=== PATIENT | female | born 1970 | race Caucasian/White ===

== ENCOUNTER → 2018-09-19 09:18 | Outpatient (POV) | payer SELFPAY | PROVIDERS: Visit Provider Dermatology | DX: Z00.00 Encounter for general adult medical examination without abnormal findings (principal) ==

== ENCOUNTER → 2018-12-13 08:08 | Outpatient (CLI) | payer BC, SELFPAY ==
[2018-12-13 14:00] LABS: Basophils % 0.6 % (0.1-2.0); Eosinophils # 0.2 K/mm3 (0.0-0.4); Eosinophils % 2.9 % (0.1-12.0); Hematocrit 36.4 % (37.0-47.0); Hemoglobin 11.5 g/dL (12.2-16.2); Lymphocytes # 2.1 K/mm3 (0.7-4.5); Lymphocytes % 31.4 % (10-50); Mean Corpuscular HGB Conc 31.5 g/dL (31.8-35.4); Mean Corpuscular Hemoglobin 29.3 pg (27.0-31.2); Mean Corpuscular Volume 93.1 fl (81-99); Mean Platelet Volume 8.3 fl (7.4-10.4); Monocytes # 0.3 K/mm3 (0.1-1.0); Monocytes % 4.4 % (1.7-9.3); Neutrophils % 60.7 % (37.0-80.0); Platelet Count 489 K/mm3 (142-424); Red Blood Count 3.91 M/mm3 (4.20-5.40); Red Cell Distribution Width 13.3 % (11.5-17.5); White Blood Count 6.5 K/mm3 (4.8-10.8)
[2018-12-13 14:25] LABS: Alanine Aminotransferase 25 U/L (12-78); Albumin Level 3.3 gm/dL (3.4-5.0); Alkaline Phosphatase 98 U/L (46-116); Anion Gap 14.1 mEq/L (5-15); Aspartate Amino Transferase 17 U/L (15-37); Bilirubin,Total 0.3 mg/dL (0.2-1.0); Blood Urea Nitrogen 12 mg/dL (7-18); Calcium 8.9 mg/dL (8.5-10.1); Carbon Dioxide 29 mmol/L (21.0-32.0); Chloride 100 mmol/L (98-107); Chol/HDL Ratio 5.2 (1-3.5); Cholesterol 178 mg/dL (140-200); Creatinine,Serum 0.67 mg/dL (0.55-1.02); Estimated Glomerular Filt Rate 94 ml/min (>60); GFR (African American) 114 ML/MIN (>60); Globulin 3.4 gm/dl (1.3-3.2); Glucose 108 mg/dL (74-106); HDL Cholesterol 34 mg/dL (29-89); LDL Cholesterol 122 mg/dL (0-130); Potassium 4.1 mmoL/L (3.5-5.1); Sodium 139 mmol/L (136-145); Total Protein,Serum 6.7 gm/dL (6.4-8.2); Triglycerides 111 mg/dL (30-200); VLDL Cholesterol 22 mg/dL (0-40)
[2018-12-13 14:44] LABS: Hemoglobin A1C 6.3 % (0.0-7.0)
== END ==
PROVIDERS: PCP Nurse Practitioner Family; Visit Provider Nurse Practitioner Family
DX: I10 Essential (primary) hypertension (principal); E78.5 Hyperlipidemia, unspecified
CPT/HCPCS: 36415; 80053; 80061; 83036; 85025

== ENCOUNTER → 2018-12-26 08:50 | Outpatient (POV) | payer BC, SELFPAY | PROVIDERS: Visit Provider Dermatology | DX: Z00.00 Encounter for general adult medical examination without abnormal findings (principal) ==

== ENCOUNTER → 2019-01-04 09:42 | Outpatient (CLI) | payer BC, SELFPAY ==
[2019-01-04 13:26] LABS: Alanine Aminotransferase 46 U/L (12-78); Albumin Level 3.8 gm/dL (3.4-5.0); Albumin/Globulin Ratio 1.1 (1.1-1.8); Alkaline Phosphatase 90 U/L (46-116); Anion Gap 14.2 mEq/L (5-15); Aspartate Amino Transferase 19 U/L (15-37); Bilirubin,Total 0.4 mg/dL (0.2-1.0); Blood Urea Nitrogen 12 mg/dL (7-18); Calcium 9.6 mg/dL (8.5-10.1); Carbon Dioxide 27 mmol/L (21.0-32.0); Chloride 102 mmol/L (98-107); Creatinine,Serum 0.74 mg/dL (0.55-1.02); Estimated Glomerular Filt Rate 84 ml/min (>60); Ferritin 25 ng/mL (8-388); GFR (African American) 102 ML/MIN (>60); Globulin 3.4 gm/dl (1.3-3.2); Glucose 98 mg/dL (74-106); Potassium 4.2 mmoL/L (3.5-5.1); Sodium 139 mmol/L (136-145); Total Protein,Serum 7.2 gm/dL (6.4-8.2)
[2019-01-04 14:22] LABS: Basophils % 0.6 % (0.1-2.0); Eosinophils % 0.6 % (0.1-12.0); Hematocrit 35.4 % (37.0-47.0); Hemoglobin 11.1 g/dL (12.2-16.2); Lymphocytes % 30.4 % (10-50); Mean Corpuscular HGB Conc 31.5 g/dL (31.8-35.4); Mean Corpuscular Hemoglobin 27.5 pg (27.0-31.2); Mean Corpuscular Volume 87.3 fl (81-99); Mean Platelet Volume 8.5 fl (7.4-10.4); Monocytes # 0.4 K/mm3 (0.1-1.0); Monocytes % 5.5 % (1.7-9.3); Neutrophils # 4.2 K/mm3 (1.8-7.8); Neutrophils % 62.9 % (37.0-80.0); Platelet Count 430 K/mm3 (142-424); Red Blood Count 4.05 M/mm3 (4.20-5.40); Red Cell Distribution Width 13.2 % (11.5-17.5); White Blood Count 6.6 K/mm3 (4.8-10.8)
[2019-01-05 08:22] LABS: Iron 78 ug/dL (27-159); UIBC 330 ug/dL (131-425)
[2019-01-05 10:32] LABS: Iron Saturation 19 % (15-55)
== END ==
PROVIDERS: PCP Nurse Practitioner Family; Visit Provider Internal Medicine Medical Oncology
DX: C43.9 Malignant melanoma of skin, unspecified (principal)
CPT/HCPCS: 36415; 80053; 82728; 83540; 83550; 85025

== ENCOUNTER → 2019-01-08 13:46 | Outpatient (CLI) | payer BC, SELFPAY ==
--- NOTE | 2019-01-08 13:52 | MR_ITS ---
MR head/brain wo/w con HISTORY: ITS.REASON: MELANOMA ORDERING PHYSICIAN: Tori Smith MD PATIENT AGE: 48 years Comparison: None TECHNIQUE: Standard multiplanar multiecho sequences are performed with contrast. FINDINGS: Diffusion images show no areas of restricted diffusion. There is no mass, acute hemorrhage or extra-axial fluid collection. Ventricles, sulci, cortical areas and brain stem structures are normal. There are no areas of abnormal signal or enhancement. Visualized portions of the optic pathways appear to be normal. Visualized vessels and area of the foramen magnum is normal. There is a smoothly marginated 1.7 cm focus of increased T2 signal in the floor of the right maxillary sinus. IMPRESSION: Right maxillary sinus retention cysts. Otherwise normal exam.
== END ==
PROVIDERS: PCP Internal Medicine Medical Oncology; Visit Provider Internal Medicine Medical Oncology
DX: C43.9 Malignant melanoma of skin, unspecified (principal)
CPT/HCPCS: 70553; A9576

== ENCOUNTER 2019-01-25 14:46 | Outpatient (CLI) | payer BC, SELFPAY ==
[2019-01-25 15:07] VITALS: BP 159/69; PULSE 87; RESP 18; TEMP 36.6; O2SAT 98
[2019-01-25 15:37] VITALS: BP 149/67; PULSE 88; RESP 18; O2SAT 97
[2019-01-25 15:55] VITALS: BP 151/62; PULSE 84; RESP 18; O2SAT 97
== END 2019-01-25 15:55 | disposition home or self-care (01) ==
LOC: INF 14:46
PROVIDERS: Visit Provider Internal Medicine Medical Oncology
DX: C43.9 Malignant melanoma of skin, unspecified (principal)
CPT/HCPCS: 96413; J9271

== ENCOUNTER → 2019-02-12 07:20 | Outpatient (CLI) | payer BC, SELFPAY ==
[2019-02-12 14:03] LABS: Basophils % 0.8 % (0.1-2.0); Eosinophils # 0.1 K/mm3 (0.0-0.4); Eosinophils % 1.7 % (0.1-12.0); Hematocrit 35.3 % (37.0-47.0); Hemoglobin 11.2 g/dL (12.2-16.2); Lymphocytes # 2.1 K/mm3 (0.7-4.5); Lymphocytes % 37.8 % (10-50); Mean Corpuscular HGB Conc 31.6 g/dL (31.8-35.4); Mean Corpuscular Hemoglobin 28.6 pg (27.0-31.2); Mean Corpuscular Volume 90.6 fl (81-99); Mean Platelet Volume 8.4 fl (7.4-10.4); Monocytes # 0.2 K/mm3 (0.1-1.0); Monocytes % 3.7 % (1.7-9.3); Neutrophils # 3.2 K/mm3 (1.8-7.8); Neutrophils % 55.9 % (37.0-80.0); Platelet Count 463 K/mm3 (142-424); Red Cell Distribution Width 13.6 % (11.5-17.5); White Blood Count 5.7 K/mm3 (4.8-10.8)
[2019-02-12 14:20] LABS: Alanine Aminotransferase 25 U/L (12-78); Albumin Level 3.9 gm/dL (3.4-5.0); Albumin/Globulin Ratio 1.2 (1.1-1.8); Alkaline Phosphatase 82 U/L (46-116); Anion Gap 11.7 mEq/L (5-15); Aspartate Amino Transferase 10 U/L (15-37); Bilirubin,Total 0.2 mg/dL (0.2-1.0); Blood Urea Nitrogen 17 mg/dL (7-18); Calcium 9.3 mg/dL (8.5-10.1); Carbon Dioxide 29 mmol/L (21.0-32.0); Chloride 104 mmol/L (98-107); Creatinine,Serum 0.66 mg/dL (0.55-1.02); Estimated Glomerular Filt Rate 96 ml/min (>60); GFR (African American) 116 ML/MIN (>60); Globulin 3.3 gm/dl (1.3-3.2); Glucose 119 mg/dL (74-106); Potassium 3.7 mmoL/L (3.5-5.1); Sodium 141 mmol/L (136-145); Thyroid Stimulating Hormone 1.61 uIU/ml (0.358-3.740); Total Protein,Serum 7.2 gm/dL (6.4-8.2)
== END ==
PROVIDERS: PCP Nurse Practitioner Family; Visit Provider Internal Medicine Medical Oncology
DX: C43.9 Malignant melanoma of skin, unspecified (principal)
CPT/HCPCS: 36415; 80053; 84443; 85025

== ENCOUNTER 2019-02-15 15:09 | Outpatient (CLI) | payer BC, SELFPAY ==
[2019-02-15 15:45] VITALS: BP 112/66; PULSE 71; RESP 18; TEMP 36.6; O2SAT 99
[2019-02-15 16:15] VITALS: BP 118/62; PULSE 76; RESP 18; O2SAT 98
[2019-02-15 16:30] VITALS: BP 120/69; PULSE 74; RESP 18; O2SAT 99
== END 2019-02-15 16:30 | disposition home or self-care (01) ==
LOC: INF 15:09
PROVIDERS: Visit Provider Internal Medicine Medical Oncology
DX: C43.9 Malignant melanoma of skin, unspecified (principal)
CPT/HCPCS: 96413; J9271

== ENCOUNTER → 2019-03-05 07:14 | Outpatient (CLI) | payer BC, SELFPAY ==
[2019-03-05 13:36] LABS: Basophils # 0.1 K/mm3 (0-0.2); Basophils % 0.7 % (0.1-2.0); Eosinophils # 0.2 K/mm3 (0.0-0.4); Eosinophils % 2.6 % (0.1-12.0); Hematocrit 34.9 % (37.0-47.0); Hemoglobin 11.1 g/dL (12.2-16.2); Lymphocytes # 2.3 K/mm3 (0.7-4.5); Lymphocytes % 32.4 % (10-50); Mean Corpuscular HGB Conc 31.9 g/dL (31.8-35.4); Mean Corpuscular Hemoglobin 28.3 pg (27.0-31.2); Mean Corpuscular Volume 88.7 fl (81-99); Mean Platelet Volume 8.5 fl (7.4-10.4); Monocytes # 0.3 K/mm3 (0.1-1.0); Monocytes % 4.6 % (1.7-9.3); Neutrophils # 4.3 K/mm3 (1.8-7.8); Neutrophils % 59.7 % (37.0-80.0); Platelet Count 422 K/mm3 (142-424); Red Blood Count 3.94 M/mm3 (4.20-5.40); White Blood Count 7.2 K/mm3 (4.8-10.8)
[2019-03-05 14:46] LABS: Alanine Aminotransferase 22 U/L (12-78); Albumin Level 3.5 gm/dL (3.4-5.0); Alkaline Phosphatase 76 U/L (46-116); Aspartate Amino Transferase 13 U/L (15-37); Bilirubin,Total 0.2 mg/dL (0.2-1.0); Blood Urea Nitrogen 13 mg/dL (7-18); Calcium 9.1 mg/dL (8.5-10.1); Carbon Dioxide 28 mmol/L (21.0-32.0); Chloride 102 mmol/L (98-107); Estimated Glomerular Filt Rate 107 ml/min (>60); GFR (African American) 130 ML/MIN (>60); Globulin 3.4 gm/dl (1.3-3.2); Glucose 112 mg/dL (74-106); Sodium 138 mmol/L (136-145); Thyroid Stimulating Hormone 2.11 uIU/ml (0.358-3.740); Total Protein,Serum 6.9 gm/dL (6.4-8.2)
== END ==
PROVIDERS: Visit Provider Internal Medicine Medical Oncology
DX: C43.9 Malignant melanoma of skin, unspecified (principal)
CPT/HCPCS: 36415; 80053; 82533; 84443; 85025

== ENCOUNTER 2019-03-08 14:40 | Outpatient (CLI) | payer BC, SELFPAY ==
[2019-03-08 15:20] VITALS: BP 112/55; PULSE 75; RESP 18; TEMP 36.7; O2SAT 98
[2019-03-08 15:30] VITALS: BP 102/60; PULSE 77; RESP 18; TEMP 36.8; O2SAT 97
[2019-03-08 15:45] VITALS: BP 113/57; PULSE 76; RESP 18; TEMP 36.7
[2019-03-08 16:05] VITALS: BP 117/55; PULSE 76; RESP 18; TEMP 36.8; O2SAT 96
== END 2019-03-08 16:05 | disposition home or self-care (01) ==
LOC: INF 14:48
PROVIDERS: Visit Provider Internal Medicine Medical Oncology
DX: C43.9 Malignant melanoma of skin, unspecified (principal)
CPT/HCPCS: 96413; J9271

== ENCOUNTER → 2019-03-26 07:40 | Outpatient (CLI) | payer BC, SELFPAY ==
[2019-03-26 14:10] LABS: Basophils # 0.1 K/mm3 (0-0.2); Basophils % 0.6 % (0.1-2.0); Eosinophils # 0.2 K/mm3 (0.0-0.4); Eosinophils % 2.9 % (0.1-12.0); Hematocrit 37.7 % (37.0-47.0); Hemoglobin 11.2 g/dL (12.2-16.2); Lymphocytes # 2.5 K/mm3 (0.7-4.5); Lymphocytes % 31.6 % (10-50); Mean Corpuscular HGB Conc 29.7 g/dL (31.8-35.4); Mean Corpuscular Hemoglobin 27.1 pg (27.0-31.2); Mean Corpuscular Volume 91.4 fl (81-99); Mean Platelet Volume 8.7 fl (7.4-10.4); Monocytes # 0.4 K/mm3 (0.1-1.0); Monocytes % 4.4 % (1.7-9.3); Neutrophils # 4.8 K/mm3 (1.8-7.8); Neutrophils % 60.5 % (37.0-80.0); Platelet Count 517 K/mm3 (142-424); Red Blood Count 4.12 M/mm3 (4.20-5.40); White Blood Count 7.9 K/mm3 (4.8-10.8)
[2019-03-26 19:09] LABS: Alanine Aminotransferase 15 U/L (12-78); Albumin Level 3.4 gm/dL (3.4-5.0); Albumin/Globulin Ratio 1.1 (1.1-1.8); Alkaline Phosphatase 75 U/L (46-116); Anion Gap 9.8 mEq/L (5-15); Aspartate Amino Transferase 8 U/L (15-37); Bilirubin,Total 0.2 mg/dL (0.2-1.0); Blood Urea Nitrogen 14 mg/dL (7-18); Calcium 8.2 mg/dL (8.5-10.1); Carbon Dioxide 30 mmol/L (21.0-32.0); Chloride 104 mmol/L (98-107); Creatinine,Serum 0.59 mg/dL (0.55-1.02); Estimated Glomerular Filt Rate 109 ml/min (>60); GFR (African American) 132 ML/MIN (>60); Globulin 3.2 gm/dl (1.3-3.2); Glucose 106 mg/dL (74-106); Potassium 3.8 mmoL/L (3.5-5.1); Sodium 140 mmol/L (136-145); Thyroid Stimulating Hormone 2.16 uIU/ml (0.358-3.740); Total Protein,Serum 6.6 gm/dL (6.4-8.2)
== END ==
PROVIDERS: PCP Nurse Practitioner Family; Visit Provider Internal Medicine Medical Oncology
DX: C43.9 Malignant melanoma of skin, unspecified (principal)
CPT/HCPCS: 36415; 80053; 84443; 85025

== ENCOUNTER 2019-03-29 14:06 | Outpatient (CLI) | payer BC, SELFPAY ==
[2019-03-29 14:50] VITALS: BP 119/66; PULSE 63; RESP 18; TEMP 37.3
[2019-03-29 15:05] VITALS: BP 109/64; PULSE 66; RESP 18; TEMP 36.9
[2019-03-29 15:20] VITALS: BP 107/60; PULSE 65; RESP 18; TEMP 37
[2019-03-29 15:40] VITALS: BP 102/64; PULSE 68; RESP 18; TEMP 37
== END 2019-03-29 15:40 | disposition home or self-care (01) ==
LOC: INF 14:06
PROVIDERS: Visit Provider Internal Medicine Medical Oncology
DX: C43.9 Malignant melanoma of skin, unspecified (principal)
CPT/HCPCS: 96413; J9271

== ENCOUNTER → 2019-04-16 07:19 | Outpatient (CLI) | payer BC, SELFPAY ==
[2019-04-16 14:28] LABS: Basophils # 0.1 K/mm3 (0-0.2); Basophils % 0.9 % (0.1-2.0); Eosinophils # 0.2 K/mm3 (0.0-0.4); Eosinophils % 2.4 % (0.1-12.0); Hematocrit 33.7 % (37.0-47.0); Hemoglobin 10.8 g/dL (12.2-16.2); Lymphocytes # 2.3 K/mm3 (0.7-4.5); Mean Corpuscular HGB Conc 32.1 g/dL (31.8-35.4); Mean Corpuscular Hemoglobin 28.8 pg (27.0-31.2); Mean Corpuscular Volume 89.6 fl (81-99); Mean Platelet Volume 8.4 fl (7.4-10.4); Monocytes # 0.4 K/mm3 (0.1-1.0); Monocytes % 5.5 % (1.7-9.3); Neutrophils # 3.7 K/mm3 (1.8-7.8); Neutrophils % 56.2 % (37.0-80.0); Platelet Count 411 K/mm3 (142-424); Red Blood Count 3.76 M/mm3 (4.20-5.40); Red Cell Distribution Width 14.5 % (11.5-17.5); White Blood Count 6.6 K/mm3 (4.8-10.8)
[2019-04-16 14:35] LABS: Alanine Aminotransferase 20 U/L (12-78); Albumin Level 3.7 gm/dL (3.4-5.0); Albumin/Globulin Ratio 1.1 (1.1-1.8); Alkaline Phosphatase 76 U/L (46-116); Anion Gap 10.8 mEq/L (5-15); Aspartate Amino Transferase 9 U/L (15-37); Bilirubin,Total 0.2 mg/dL (0.2-1.0); Blood Urea Nitrogen 13 mg/dL (7-18); Calcium 9.1 mg/dL (8.5-10.1); Carbon Dioxide 29 mmol/L (21.0-32.0); Chloride 103 mmol/L (98-107); Estimated Glomerular Filt Rate 107 ml/min (>60); GFR (African American) 130 ML/MIN (>60); Globulin 3.3 gm/dl (1.3-3.2); Glucose 114 mg/dL (74-106); Potassium 3.8 mmoL/L (3.5-5.1); Sodium 139 mmol/L (136-145); Thyroid Stimulating Hormone 1.99 uIU/ml (0.358-3.740)
[2019-04-18 07:22] LABS: Adrenocorticotropic Hormone 21.9 pg/mL (7.2-63.3)
== END ==
PROVIDERS: PCP Nurse Practitioner Family; Visit Provider Internal Medicine Medical Oncology
DX: C43.9 Malignant melanoma of skin, unspecified (principal)
CPT/HCPCS: 36415; 80053; 82024; 82533; 84443; 85025

== ENCOUNTER 2019-04-20 15:13 | Outpatient (CLI) | payer BC, SELFPAY ==
[2019-04-20 15:14] VITALS: BP 128/86; PULSE 73; RESP 18; TEMP 36.9; O2SAT 98
[2019-04-20 15:44] VITALS: BP 120/86; PULSE 78; RESP 18; O2SAT 98
[2019-04-20 15:57] VITALS: BP 117/75; PULSE 72; RESP 18; O2SAT 97
== END 2019-04-20 15:57 | disposition home or self-care (01) ==
LOC: INF 15:13
PROVIDERS: Visit Provider Internal Medicine Medical Oncology
DX: Z51.11 Encounter for antineoplastic chemotherapy (principal); C43.9 Malignant melanoma of skin, unspecified
CPT/HCPCS: 96413; J9271

== ENCOUNTER → 2019-05-07 07:02 | Outpatient (CLI) | payer BC, SELFPAY ==
[2019-05-07 14:09] LABS: Basophils # 0.1 K/mm3 (0-0.2); Basophils % 0.9 % (0.1-2.0); Eosinophils # 0.3 K/mm3 (0.0-0.4); Eosinophils % 3.3 % (0.1-12.0); Lymphocytes # 2.1 K/mm3 (0.7-4.5); Lymphocytes % 28.2 % (10-50); Mean Corpuscular HGB Conc 31.6 g/dL (31.8-35.4); Mean Corpuscular Hemoglobin 28.6 pg (27.0-31.2); Mean Corpuscular Volume 90.6 fl (81-99); Mean Platelet Volume 8.9 fl (7.4-10.4); Monocytes # 0.3 K/mm3 (0.1-1.0); Monocytes % 3.7 % (1.7-9.3); Neutrophils # 4.8 K/mm3 (1.8-7.8); Platelet Count 453 K/mm3 (142-424); Red Blood Count 3.86 M/mm3 (4.20-5.40); Red Cell Distribution Width 15.2 % (11.5-17.5); White Blood Count 7.6 K/mm3 (4.8-10.8)
[2019-05-07 14:48] LABS: Alanine Aminotransferase 23 U/L (12-78); Albumin Level 3.7 gm/dL (3.4-5.0); Albumin/Globulin Ratio 1.1 (1.1-1.8); Alkaline Phosphatase 70 U/L (46-116); Anion Gap 13.1 mEq/L (5-15); Aspartate Amino Transferase 17 U/L (15-37); Bilirubin,Total 0.3 mg/dL (0.2-1.0); Blood Urea Nitrogen 13 mg/dL (7-18); Carbon Dioxide 27 mmol/L (21.0-32.0); Chloride 102 mmol/L (98-107); Creatinine,Serum 0.54 mg/dL (0.55-1.02); Estimated Glomerular Filt Rate 121 ml/min (>60); GFR (African American) 146 ML/MIN (>60); Globulin 3.3 gm/dl (1.3-3.2); Glucose 108 mg/dL (74-106); Potassium 4.1 mmoL/L (3.5-5.1); Sodium 138 mmol/L (136-145); Thyroid Stimulating Hormone 1.95 uIU/ml (0.358-3.740)
[2019-05-09 10:20] LABS: Adrenocorticotropic Hormone 30.2 pg/mL (7.2-63.3)
== END ==
PROVIDERS: PCP Nurse Practitioner Family; Visit Provider Internal Medicine Medical Oncology
DX: C43.9 Malignant melanoma of skin, unspecified (principal)
CPT/HCPCS: 36415; 80053; 82024; 82533; 84443; 85025

== ENCOUNTER 2019-05-10 14:38 | Outpatient (CLI) | payer BC, SELFPAY ==
[2019-05-10 15:05] VITALS: BP 138/64; PULSE 78; RESP 18; TEMP 36.6; O2SAT 99
[2019-05-10 15:35] VITALS: BP 124/66; PULSE 77; RESP 18; O2SAT 98
[2019-05-10 15:48] VITALS: BP 120/57; PULSE 73; RESP 18; O2SAT 99
== END 2019-05-10 15:48 | disposition home or self-care (01) ==
LOC: INF 14:38
PROVIDERS: Visit Provider Internal Medicine Medical Oncology
DX: Z51.11 Encounter for antineoplastic chemotherapy (principal); C43.9 Malignant melanoma of skin, unspecified
CPT/HCPCS: 96413; J9271

== ENCOUNTER → 2019-05-24 15:57 | Outpatient (CLI) | payer BC, SELFPAY ==
--- NOTE | 2019-05-24 16:01 | MM_ITS ---
PROCEDURE: MM DIG SCREENING MAMM BI W/CAD CLINICAL INDICATION: SCREENING There is no personal or family history of breast cancer. Patient is undergoing treatment for skin cancer at this time with previous resection of a lymph node right axillary region. COMPARISON: None, this is a baseline examination TECHNIQUE: Standard CC and MLO images were obtained. R2 CAD reviewed. FINDINGS: Scattered diffuse fibroglandular densities are seen throughout both breast and the findings of bilateral and symmetrical. There are surgical clips right axilla. There is benign-appearing calcification right breast. There is no suspicious lesion and no suspicious microcalcifications. IMPRESSION: Fibrofatty parenchyma with no suspicious lesions seen BI-RAD Category: 2 Benign Finding(s) FOLLOW-UP: 1YR 1 Year Follow-up (A letter has been sent to the patient regarding results of the study.) Dictated by: Dr. Dung Hernandez MD 05/25/2019 14:[address] Dung Hernandez MD in [place] 05/25/2019 14:15
== END ==
PROVIDERS: PCP Nurse Practitioner Family; Visit Provider Nurse Practitioner Family
DX: Z12.31 Encounter for screening mammogram for malignant neoplasm of breast (principal)
CPT/HCPCS: 77067

== ENCOUNTER → 2019-05-28 07:54 | Outpatient (CLI) | payer BC, SELFPAY ==
[2019-05-28 14:32] LABS: Alanine Aminotransferase 21 U/L (12-78); Albumin Level 3.6 gm/dL (3.4-5.0); Albumin/Globulin Ratio 1.1 (1.1-1.8); Alkaline Phosphatase 78 U/L (46-116); Anion Gap 12.8 mEq/L (5-15); Aspartate Amino Transferase 10 U/L (15-37); Bilirubin,Total 0.3 mg/dL (0.2-1.0); Blood Urea Nitrogen 14 mg/dL (7-18); Calcium 9.2 mg/dL (8.5-10.1); Carbon Dioxide 29 mmol/L (21.0-32.0); Chloride 103 mmol/L (98-107); Creatinine,Serum 0.66 mg/dL (0.55-1.02); Estimated Glomerular Filt Rate 96 ml/min (>60); GFR (African American) 116 ML/MIN (>60); Globulin 3.3 gm/dl (1.3-3.2); Glucose 107 mg/dL (74-106); Potassium 3.8 mmoL/L (3.5-5.1); Sodium 141 mmol/L (136-145); Thyroid Stimulating Hormone 1.06 uIU/ml (0.358-3.740); Total Protein,Serum 6.9 gm/dL (6.4-8.2)
[2019-05-28 15:09] LABS: Basophils # 0.1 K/mm3 (0-0.2); Basophils % 1.1 % (0.1-2.0); Eosinophils # 0.1 K/mm3 (0.0-0.4); Hematocrit 36.7 % (37.0-47.0); Hemoglobin 11.2 g/dL (12.2-16.2); Lymphocytes % 36.1 % (10-50); Mean Corpuscular HGB Conc 30.6 g/dL (31.8-35.4); Mean Corpuscular Hemoglobin 28.5 pg (27.0-31.2); Mean Platelet Volume 9.3 fl (7.4-10.4); Monocytes # 0.2 K/mm3 (0.1-1.0); Monocytes % 4.4 % (1.7-9.3); Neutrophils # 3.1 K/mm3 (1.8-7.8); Neutrophils % 56.5 % (37.0-80.0); Platelet Count 469 K/mm3 (142-424); Red Blood Count 3.94 M/mm3 (4.20-5.40); Red Cell Distribution Width 14.6 % (11.5-17.5); White Blood Count 5.5 K/mm3 (4.8-10.8)
[2019-05-29 15:21] LABS: Adrenocorticotropic Hormone 33.8 pg/mL (7.2-63.3)
== END ==
PROVIDERS: PCP Nurse Practitioner Family; Visit Provider Internal Medicine Medical Oncology
DX: C43.9 Malignant melanoma of skin, unspecified (principal)
CPT/HCPCS: 36415; 80053; 82024; 82533; 84443; 85025

== ENCOUNTER 2019-06-01 13:40 | Outpatient (CLI) | payer BC, SELFPAY ==
[2019-06-01 14:10] VITALS: BP 129/74; PULSE 75; RESP 18; TEMP 36.8
[2019-06-01 14:25] VITALS: BP 107/60; PULSE 81; RESP 18
[2019-06-01 14:50] VITALS: BP 112/67; PULSE 69; RESP 18
== END 2019-06-01 14:50 | disposition home or self-care (01) ==
LOC: INF 13:40
PROVIDERS: Visit Provider Internal Medicine Medical Oncology
DX: Z51.11 Encounter for antineoplastic chemotherapy (principal); C43.9 Malignant melanoma of skin, unspecified
CPT/HCPCS: 96413; J9271

== ENCOUNTER → 2019-06-18 08:12 | Outpatient (CLI) | payer BC, SELFPAY ==
[2019-06-18 13:27] LABS: Basophils # 0.1 K/mm3 (0-0.2); Basophils % 1.1 % (0.1-2.0); Eosinophils # 0.2 K/mm3 (0.0-0.4); Eosinophils % 3.6 % (0.1-12.0); Hematocrit 38.3 % (37.0-47.0); Hemoglobin 11.4 g/dL (12.2-16.2); Lymphocytes # 2.4 K/mm3 (0.7-4.5); Lymphocytes % 38.3 % (10-50); Mean Corpuscular HGB Conc 29.7 g/dL (31.8-35.4); Mean Corpuscular Hemoglobin 27.1 pg (27.0-31.2); Mean Platelet Volume 8.2 fl (7.4-10.4); Monocytes # 0.2 K/mm3 (0.1-1.0); Monocytes % 3.7 % (1.7-9.3); Neutrophils # 3.3 K/mm3 (1.8-7.8); Neutrophils % 53.3 % (37.0-80.0); Platelet Count 438 K/mm3 (142-424); Red Blood Count 4.21 M/mm3 (4.20-5.40); Red Cell Distribution Width 15.1 % (11.5-17.5); White Blood Count 6.3 K/mm3 (4.8-10.8)
[2019-06-18 14:39] LABS: Alanine Aminotransferase 27 U/L (12-78); Albumin Level 3.6 gm/dL (3.4-5.0); Albumin/Globulin Ratio 1.1 (1.1-1.8); Alkaline Phosphatase 67 U/L (46-116); Aspartate Amino Transferase 12 U/L (15-37); Bilirubin,Total 0.2 mg/dL (0.2-1.0); Blood Urea Nitrogen 13 mg/dL (7-18); Calcium 9.1 mg/dL (8.5-10.1); Carbon Dioxide 30 mmol/L (21.0-32.0); Chloride 103 mmol/L (98-107); Creatinine,Serum 0.64 mg/dL (0.55-1.02); Estimated Glomerular Filt Rate 99 ml/min (>60); GFR (African American) 120 ML/MIN (>60); Globulin 3.2 gm/dl (1.3-3.2); Glucose 101 mg/dL (74-106); Sodium 142 mmol/L (136-145); Total Protein,Serum 6.8 gm/dL (6.4-8.2)
[2019-06-20 01:32] LABS: Adrenocorticotropic Hormone 68.9 pg/mL (7.2-63.3)
== END ==
PROVIDERS: Visit Provider Internal Medicine Medical Oncology
DX: C43.9 Malignant melanoma of skin, unspecified (principal)
CPT/HCPCS: 36415; 80053; 82024; 82533; 84443; 85025

== ENCOUNTER 2019-06-21 14:11 | Outpatient (CLI) | payer BC, SELFPAY ==
[2019-06-21 14:39] VITALS: BP 115/65; PULSE 77; RESP 18; O2SAT 98
[2019-06-21 14:55] VITALS: BP 107/63; PULSE 77; RESP 18
[2019-06-21 15:27] VITALS: BP 120/57; PULSE 81; RESP 18
== END 2019-06-21 15:27 | disposition home or self-care (01) ==
LOC: INF 14:11
PROVIDERS: Visit Provider Internal Medicine Medical Oncology
DX: Z51.11 Encounter for antineoplastic chemotherapy (principal); C43.61 Malignant melanoma of right upper limb, including shoulder
CPT/HCPCS: 96413; J9271

== ENCOUNTER → 2019-07-09 08:12 | Outpatient (CLI) | payer BC, SELFPAY ==
[2019-07-09 13:37] LABS: Basophils # 0.1 K/mm3 (0-0.2); Basophils % 0.8 % (0.1-2.0); Eosinophils # 0.1 K/mm3 (0.0-0.4); Eosinophils % 1.9 % (0.1-12.0); Hemoglobin 11.3 g/dL (12.2-16.2); Lymphocytes % 30.2 % (10-50); Mean Corpuscular HGB Conc 32.2 g/dL (31.8-35.4); Mean Corpuscular Hemoglobin 29.3 pg (27.0-31.2); Mean Corpuscular Volume 91.1 fl (81-99); Mean Platelet Volume 8.4 fl (7.4-10.4); Monocytes # 0.2 K/mm3 (0.1-1.0); Monocytes % 2.8 % (1.7-9.3); Neutrophils # 4.3 K/mm3 (1.8-7.8); Neutrophils % 64.2 % (37.0-80.0); Platelet Count 387 K/mm3 (142-424); Red Blood Count 3.84 M/mm3 (4.20-5.40); Red Cell Distribution Width 14.3 % (11.5-17.5); White Blood Count 6.7 K/mm3 (4.8-10.8)
[2019-07-09 14:48] LABS: Alanine Aminotransferase 40 U/L (12-78); Albumin Level 3.3 gm/dL (3.4-5.0); Albumin/Globulin Ratio 1.1 (1.1-1.8); Alkaline Phosphatase 69 U/L (46-116); Anion Gap 9.4 mEq/L (5-15); Aspartate Amino Transferase 15 U/L (15-37); Bilirubin,Total 0.2 mg/dL (0.2-1.0); Blood Urea Nitrogen 10 mg/dL (7-18); Calcium 8.9 mg/dL (8.5-10.1); Carbon Dioxide 29 mmol/L (21.0-32.0); Chloride 104 mmol/L (98-107); Creatinine,Serum 0.62 mg/dL (0.55-1.02); Estimated Glomerular Filt Rate 103 ml/min (>60); GFR (African American) 125 ML/MIN (>60); Globulin 3.1 gm/dl (1.3-3.2); Glucose 100 mg/dL (74-106); Potassium 4.4 mmoL/L (3.5-5.1); Sodium 138 mmol/L (136-145); Thyroid Stimulating Hormone 0.97 uIU/ml (0.358-3.740); Total Protein,Serum 6.4 gm/dL (6.4-8.2)
[2019-07-11 18:16] LABS: Adrenocorticotropic Hormone 24.1 pg/mL (7.2-63.3)
== END ==
PROVIDERS: PCP Nurse Practitioner Family; Visit Provider Internal Medicine Hematology & Oncology
DX: C43.61 Malignant melanoma of right upper limb, including shoulder (principal)
CPT/HCPCS: 36415; 80053; 82024; 84443; 85025

== ENCOUNTER 2019-07-12 14:33 | Outpatient (CLI) | payer BC, SELFPAY ==
[2019-07-12 15:15] VITALS: BP 129/71; PULSE 67; RESP 18; O2SAT 99
[2019-07-12 15:30] VITALS: BP 122/64; PULSE 64; RESP 18
[2019-07-12 16:05] VITALS: BP 122/69; PULSE 68; RESP 18
== END 2019-07-12 16:05 | disposition home or self-care (01) ==
LOC: INF 14:33
PROVIDERS: Visit Provider Internal Medicine Medical Oncology
DX: Z51.11 Encounter for antineoplastic chemotherapy (principal); C43.61 Malignant melanoma of right upper limb, including shoulder
CPT/HCPCS: 96413; J9271

== ENCOUNTER → 2019-07-27 08:01 | Outpatient (CLI) | payer BC, SELFPAY ==
[2019-07-27 12:55] LABS: Basophils # 0.1 K/mm3 (0-0.2); Eosinophils # 0.2 K/mm3 (0.0-0.4); Eosinophils % 2.7 % (0.1-12.0); Hematocrit 36.4 % (37.0-47.0); Hemoglobin 11.3 g/dL (12.2-16.2); Lymphocytes # 2.2 K/mm3 (0.7-4.5); Lymphocytes % 33.4 % (10-50); Mean Corpuscular HGB Conc 31.1 g/dL (31.8-35.4); Mean Corpuscular Volume 90.3 fl (81-99); Mean Platelet Volume 8.9 fl (7.4-10.4); Monocytes # 0.3 K/mm3 (0.1-1.0); Monocytes % 5.2 % (1.7-9.3); Neutrophils # 3.7 K/mm3 (1.8-7.8); Neutrophils % 57.6 % (37.0-80.0); Platelet Count 495 K/mm3 (142-424); Red Blood Count 4.03 M/mm3 (4.20-5.40); Red Cell Distribution Width 15.6 % (11.5-17.5); White Blood Count 6.5 K/mm3 (4.8-10.8)
[2019-07-27 15:00] LABS: Carbon Dioxide 27 mmol/L (21.0-32.0); Chloride 104 mmol/L (98-107); Potassium 3.9 mmoL/L (3.5-5.1); Sodium 139 mmol/L (136-145)
[2019-07-27 15:01] LABS: Alanine Aminotransferase 20 U/L (12-78); Albumin Level 3.6 gm/dL (3.4-5.0); Albumin/Globulin Ratio 1.2 (1.1-1.8); Alkaline Phosphatase 80 U/L (46-116); Anion Gap 11.9 mEq/L (5-15); Aspartate Amino Transferase 15 U/L (15-37); Bilirubin,Total 0.2 mg/dL (0.2-1.0); Blood Urea Nitrogen 13 mg/dL (7-18); Calcium 9.1 mg/dL (8.5-10.1); Estimated Glomerular Filt Rate 90 ml/min (>60); GFR (African American) 109 ML/MIN (>60); Globulin 3.1 gm/dl (1.3-3.2); Glucose 122 mg/dL (74-106); Thyroid Stimulating Hormone 0.38 uIU/ml (0.358-3.740); Total Protein,Serum 6.7 gm/dL (6.4-8.2)
[2019-07-30 17:10] LABS: Adrenocorticotropic Hormone 27.1 pg/mL (7.2-63.3)
== END ==
PROVIDERS: Visit Provider Internal Medicine Medical Oncology
DX: C43.9 Malignant melanoma of skin, unspecified (principal)
CPT/HCPCS: 36415; 80053; 82024; 82533; 84443; 85025

== ENCOUNTER 2019-08-02 08:32 | Outpatient (CLI) | payer BC, SELFPAY ==
--- NOTE | 2019-08-02 08:37 | CT_ITS ---
PROCEDURE: CT CHEST WO/W CON CLINCAL INDICATION: Follow-up melanoma COMPARISON: CT ABDOMEN PELVIS WO/W CON from 08/02/2019 TECHNIQUE: IV Contrast: 75ml Optiray 350 Axial images obtained with sagittal and coronal reformats. All CT scans at the facility use one or more dose reduction, viz: automated exposure control, ma/kV adjustment per patient size (including targeted exams where dose is matched to indication, i.e. head), or iterative reconstruction technique. FINDINGS: HEART AND MEDIASTINAL STRUCTURES: Thyroid gland is somewhat prominent with nodularity and small hypodensities. No dominant nodule is demonstrated. Coronary artery calcifications are noted. No mediastinal or hilar mass or adenopathy. LUNGS AND PLEURAL SPACES: Calcified granuloma is present in the left upper lobe. No suspicious pulmonary nodules are evident. There is some minimal atelectatic or fibrotic changes in the lung bases. No effusions BONY STRUCTURES: No acute bony abnormalities apparent. UPPER ABDOMEN: Please see abdomen report ADDITIONAL FINDINGS: There is a subcutaneous nodule noted in the lower chest/upper abdomen in the left paracentral region. This is approximately 4 cm below the level of the tip of the xiphoid process and may represent a sebaceous cyst. Please correlate with physical exam in this patient with history of melanoma. Surgical clips are present in the right axillary region. No axillary adenopathy. Small nodes are present in the axilla on both sides. IMPRESSION: 1. No evidence of mediastinal hilar or pulmonary metastasis. 2. Subcutaneous nodule in the lower chest/upper abdomen in the left paracentral region 4 cm inferior to the tip of the xiphoid possibly due to sebaceous cyst. Dictated by: Vincent Galaviz MD 08/02/2019 09:50 Electronically signed by Vincent Galaviz MD in [place] 08/02/2019 09:50
--- NOTE | 2019-08-02 08:37 | CT_ITS ---
PROCEDURE: CT ABDOMEN PELVIS WO/W CON CLINICAL INDICATION: MELANOMA Follow-up melanoma COMPARISON: No exams were available for comparison TECHNIQUE: IV Contrast: 75ML OPTIRAY 350 Oral Contrast 450ml Redicat Axial images obtained with sagittal and coronal reformats. All CT scans at the facility use one or more dose reduction, viz: automated exposure control, ma/kV adjustment per patient size (including targeted exams where dose is matched to indication, i.e. head), or iterative reconstruction technique. FINDINGS: Coronary artery calcifications are present in the lung bases. There is an ill-defined hypodense lesion in the hepatic dome centrally measuring approximately 18 mm. This is best detected on the portal phase enhanced images poorly discerned on the 5 minutes delayed images. There are no additional lesions of the liver identified. The spleen, adrenal glands, pancreas, and kidneys have an unremarkable appearance. No intestinal obstruction or free air evident. The appendix is unremarkable. No pelvic mass abnormal fluid collection or focal inflammatory change of pelvis. No adenopathy apparent. There are few sclerotic foci within the pelvis at least 2 in the right ilium and 1 in the left ilium. These are nonspecific and could be due to bone islands. There are few small lymph nodes in the inguinal region on both sides. IMPRESSION: 1. There is a single hypodense lesion of the hepatic dome. This is nonspecific and could even be due to a hemangioma. Cannot exclude the possibility of a single metastatic focus. Follow-up is recommended to confirm stability. MRI of the liver with hemangioma protocol may provide further evaluation if clinically desired. 2. Scattered sclerotic foci within the pelvis which may be due to bone islands. 3. Otherwise negative Dictated by: Vincent Galaviz MD 08/02/2019 09:57 Electronically signed by Vincent Galaviz MD in [place] 08/02/2019 09:57
[2019-08-02 12:27] VITALS: BP 127/63; PULSE 69; RESP 18; TEMP 36.6; O2SAT 99
[2019-08-02 12:57] VITALS: BP 120/67; PULSE 62; RESP 18; O2SAT 98
[2019-08-02 13:15] VITALS: BP 121/62; PULSE 68; RESP 18; O2SAT 98
== END 2019-08-02 13:15 | disposition home or self-care (01) ==
LOC: RAD 08:32 → INF 12:15
PROVIDERS: PCP Nurse Practitioner Family; Visit Provider Internal Medicine Medical Oncology
DX: Z51.11 Encounter for antineoplastic chemotherapy (principal); C43.61 Malignant melanoma of right upper limb, including shoulder
CPT/HCPCS: 71270; 74178; 96413; J9271

== ENCOUNTER → 2019-08-20 07:06 | Outpatient (CLI) | payer BC, SELFPAY ==
[2019-08-20 13:26] LABS: Basophils # 0.1 K/mm3 (0-0.2); Basophils % 0.8 % (0.1-2.0); Eosinophils # 0.2 K/mm3 (0.0-0.4); Eosinophils % 2.7 % (0.1-12.0); Hemoglobin 11.5 g/dL (12.2-16.2); Mean Corpuscular HGB Conc 31.9 g/dL (31.8-35.4); Mean Corpuscular Hemoglobin 29.2 pg (27.0-31.2); Mean Corpuscular Volume 91.3 fl (81-99); Mean Platelet Volume 8.5 fl (7.4-10.4); Monocytes # 0.3 K/mm3 (0.1-1.0); Monocytes % 3.9 % (1.7-9.3); Neutrophils # 5.4 K/mm3 (1.8-7.8); Neutrophils % 67.5 % (37.0-80.0); Platelet Count 371 K/mm3 (142-424); Red Blood Count 3.94 M/mm3 (4.20-5.40); Red Cell Distribution Width 14.2 % (11.5-17.5)
[2019-08-20 13:32] LABS: Chloride 102 mmol/L (98-107); Potassium 4.1 mmoL/L (3.5-5.1); Sodium 137 mmol/L (136-145)
[2019-08-20 13:34] LABS: Alanine Aminotransferase 15 U/L (12-78); Aspartate Amino Transferase 19 U/L (14-36); Blood Urea Nitrogen 14 mg/dl (7-17); Estimated Glomerular Filt Rate 132 ml/min (>60); GFR (African American) 160 ML/MIN (>60)
[2019-08-20 13:35] LABS: Albumin Level 3.8 g/dl (3.5-5.0); Albumin/Globulin Ratio 1.3 (1.1-1.8); Alkaline Phosphatase 78 U/L (38-126); Anion Gap 11.1 mEq/L (5-15); Bilirubin,Total 0.1 mg/dl (0.2-1.3); Calcium 9.4 mg/dl (8.4-10.2); Carbon Dioxide 28 mmol/L (22.0-30.0); Globulin 2.9 g/dL (1.3-3.2); Glucose 108 mg/dl (74-100); Total Protein,Serum 6.7 g/dl (6.3-8.2)
[2019-08-21 16:20] LABS: Adrenocorticotropic Hormone 23.7 pg/mL (7.2-63.3)
== END ==
PROVIDERS: Visit Provider Internal Medicine Medical Oncology
DX: Z51.11 Encounter for antineoplastic chemotherapy (principal); C43.61 Malignant melanoma of right upper limb, including shoulder
CPT/HCPCS: 36415; 80053; 82024; 82533; 84443; 85025

== ENCOUNTER 2019-08-23 14:25 | Outpatient (CLI) | payer BC, SELFPAY ==
[2019-08-23 15:07] VITALS: BP 133/75; PULSE 80; RESP 18; TEMP 36.8; O2SAT 99
[2019-08-23 15:37] VITALS: BP 124/79; PULSE 79; RESP 18; O2SAT 98
[2019-08-23 15:45] VITALS: BP 119/62; PULSE 75; RESP 18; O2SAT 99
== END 2019-08-23 15:45 | disposition home or self-care (01) ==
LOC: INF 14:28
PROVIDERS: Visit Provider Internal Medicine Medical Oncology
DX: Z51.11 Encounter for antineoplastic chemotherapy (principal); C43.61 Malignant melanoma of right upper limb, including shoulder
CPT/HCPCS: 96413; J9271

== ENCOUNTER → 2019-09-07 07:11 | Outpatient (CLI) | payer BC, SELFPAY ==
[2019-09-07 14:16] LABS: Basophils # 0.1 K/mm3 (0-0.2); Basophils % 0.9 % (0.1-2.0); Eosinophils # 0.1 K/mm3 (0.0-0.4); Eosinophils % 1.9 % (0.1-12.0); Hematocrit 35.7 % (37.0-47.0); Hemoglobin 11.2 g/dL (12.2-16.2); Lymphocytes # 2.5 K/mm3 (0.7-4.5); Mean Corpuscular HGB Conc 31.5 g/dL (31.8-35.4); Mean Corpuscular Hemoglobin 28.9 pg (27.0-31.2); Mean Corpuscular Volume 91.7 fl (81-99); Mean Platelet Volume 8.7 fl (7.4-10.4); Monocytes # 0.3 K/mm3 (0.1-1.0); Monocytes % 4.3 % (1.7-9.3); Neutrophils # 4.5 K/mm3 (1.8-7.8); Neutrophils % 59.8 % (37.0-80.0); Platelet Count 485 K/mm3 (142-424); Red Blood Count 3.89 M/mm3 (4.20-5.40); Red Cell Distribution Width 14.1 % (11.5-17.5); White Blood Count 7.5 K/mm3 (4.8-10.8)
[2019-09-07 14:24] LABS: Alanine Aminotransferase 16 U/L (12-78); Albumin Level 3.9 g/dl (3.5-5.0); Albumin/Globulin Ratio 1.3 (1.1-1.8); Alkaline Phosphatase 62 U/L (38-126); Anion Gap 9.4 mEq/L (5-15); Aspartate Amino Transferase 20 U/L (14-36); Blood Urea Nitrogen 14 mg/dl (7-17); Calcium 9.6 mg/dl (8.4-10.2); Carbon Dioxide 29 mmol/L (22.0-30.0); Chloride 103 mmol/L (98-107); Estimated Glomerular Filt Rate 107 ml/min (>60); GFR (African American) 130 ML/MIN (>60); Glucose 100 mg/dl (74-100); Potassium 4.4 mmoL/L (3.5-5.1); Sodium 137 mmol/L (136-145); Total Protein,Serum 6.9 g/dl (6.3-8.2)
[2019-09-07 14:27] LABS: Bilirubin,Total 0.1 mg/dl (0.2-1.3)
[2019-09-07 14:52] LABS: Thyroid Stimulating Hormone 0.75 uIU/mL (0.465-4.68)
== END ==
PROVIDERS: Visit Provider Internal Medicine Medical Oncology
DX: C43.61 Malignant melanoma of right upper limb, including shoulder (principal)
CPT/HCPCS: 36415; 80053; 82533; 84443; 85025

== ENCOUNTER 2019-09-13 08:56 | Outpatient (CLI) | payer BC, SELFPAY ==
[2019-09-13 09:51] VITALS: BP 111/67; PULSE 89; RESP 18; TEMP 36.4; O2SAT 100
[2019-09-13 10:21] VITALS: BP 115/63; PULSE 85; RESP 18; O2SAT 99
[2019-09-13 10:35] VITALS: BP 114/63; PULSE 69; RESP 18; O2SAT 99
== END 2019-09-13 10:35 | disposition home or self-care (01) ==
LOC: INF 08:56
PROVIDERS: Visit Provider Internal Medicine Medical Oncology
DX: Z51.11 Encounter for antineoplastic chemotherapy (principal); C43.61 Malignant melanoma of right upper limb, including shoulder
CPT/HCPCS: 96413; J9271

== ENCOUNTER → 2019-10-02 08:30 | Outpatient (CLI) | payer BC, SELFPAY ==
[2019-10-02 09:20] LABS: Basophils # 0.1 K/mm3 (0-0.2); Basophils % 0.7 % (0.1-2.0); Eosinophils # 0.1 K/mm3 (0.0-0.4); Eosinophils % 1.3 % (0.1-12.0); Hematocrit 36.1 % (37.0-47.0); Hemoglobin 11.3 g/dL (12.2-16.2); Lymphocytes # 2.4 K/mm3 (0.7-4.5); Lymphocytes % 31.2 % (10-50); Mean Corpuscular HGB Conc 31.4 g/dL (31.8-35.4); Mean Corpuscular Hemoglobin 28.7 pg (27.0-31.2); Mean Corpuscular Volume 91.3 fl (81-99); Mean Platelet Volume 7.9 fl (7.4-10.4); Monocytes # 0.3 K/mm3 (0.1-1.0); Monocytes % 4.1 % (1.7-9.3); Neutrophils # 4.8 K/mm3 (1.8-7.8); Neutrophils % 62.8 % (37.0-80.0); Platelet Count 407 K/mm3 (142-424); Red Blood Count 3.95 M/mm3 (4.20-5.40); White Blood Count 7.6 K/mm3 (4.8-10.8)
[2019-10-02 11:41] LABS: Chloride 102 mmol/L (98-107); Potassium 4.6 mmoL/L (3.5-5.1); Sodium 138 mmol/L (136-145)
[2019-10-02 11:44] LABS: Alanine Aminotransferase 19 U/L (12-78); Albumin Level 3.9 g/dl (3.5-5.0); Albumin/Globulin Ratio 1.3 (1.1-1.8); Alkaline Phosphatase 69 U/L (38-126); Anion Gap 9.6 mEq/L (5-15); Aspartate Amino Transferase 23 U/L (14-36); Bilirubin,Total 0.2 mg/dl (0.2-1.3); Blood Urea Nitrogen 10 mg/dl (7-17); Carbon Dioxide 31 mmol/L (22.0-30.0); Estimated Glomerular Filt Rate 107 ml/min (>60); GFR (African American) 130 ML/MIN (>60); Globulin 2.9 g/dL (1.3-3.2); Total Protein,Serum 6.8 g/dl (6.3-8.2)
[2019-10-02 11:45] LABS: Calcium 9.5 mg/dl (8.4-10.2); Glucose 97 mg/dl (74-100)
== END ==
PROVIDERS: Visit Provider Internal Medicine Medical Oncology
DX: C43.61 Malignant melanoma of right upper limb, including shoulder (principal)
CPT/HCPCS: 36415; 80053; 82533; 84443; 85025

== ENCOUNTER → 2019-10-04 08:45 | Outpatient (CLI) | payer BC, SELFPAY ==
[2019-10-04 08:46] VITALS: BMI 32.9
[2019-10-04 10:05] VITALS: BP 107/69; PULSE 66; RESP 18; TEMP 36.6; O2SAT 100
[2019-10-04 10:20] VITALS: BP 107/64; PULSE 66; RESP 18
[2019-10-04 10:50] VITALS: BP 113/68; PULSE 65; RESP 18
[2019-10-05 15:16] LABS: Adrenocorticotropic Hormone 49.6 pg/mL (7.2-63.3)
== END ==
PROVIDERS: Visit Provider Internal Medicine Medical Oncology
DX: Z51.11 Encounter for antineoplastic chemotherapy (principal); C43.61 Malignant melanoma of right upper limb, including shoulder
CPT/HCPCS: 82024; 96413; J9271

== ENCOUNTER 2019-10-25 08:30 | Outpatient (CLI) | payer BC, SELFPAY ==
[2019-10-25 08:31] VITALS: BMI 32.8
[2019-10-25 08:46] LABS: Basophils % 0.7 % (0.1-2.0); Eosinophils # 0.1 K/mm3 (0.0-0.4); Eosinophils % 1.6 % (0.1-12.0); Hematocrit 36.6 % (37.0-47.0); Hemoglobin 11.7 g/dL (12.2-16.2); Lymphocytes # 2.2 K/mm3 (0.7-4.5); Mean Corpuscular HGB Conc 31.9 g/dL (31.8-35.4); Mean Corpuscular Hemoglobin 29.3 pg (27.0-31.2); Mean Corpuscular Volume 91.8 fl (81-99); Monocytes # 0.3 K/mm3 (0.1-1.0); Monocytes % 4.9 % (1.7-9.3); Neutrophils # 3.6 K/mm3 (1.8-7.8); Neutrophils % 57.9 % (37.0-80.0); Platelet Count 445 K/mm3 (142-424); Red Blood Count 3.99 M/mm3 (4.20-5.40); Red Cell Distribution Width 14.3 % (11.5-17.5); White Blood Count 6.2 K/mm3 (4.8-10.8)
[2019-10-25 09:36] VITALS: BP 93/55; PULSE 57; RESP 18; TEMP 37.1; O2SAT 98
[2019-10-25 10:23] VITALS: BP 100/57; PULSE 65; RESP 18
== END 2019-10-25 10:23 | disposition home or self-care (01) ==
LOC: INF 08:30
PROVIDERS: Visit Provider Internal Medicine Medical Oncology
DX: Z51.11 Encounter for antineoplastic chemotherapy (principal); C43.61 Malignant melanoma of right upper limb, including shoulder
CPT/HCPCS: 85025; 96413; J9271

== ENCOUNTER → 2019-11-05 18:26 | Outpatient (CLI) | payer BC, SELFPAY | PROVIDERS: Visit Provider Podiatrist | DX: B07.9 Viral wart, unspecified (principal) | CPT/HCPCS: 87070; 87077; 87186; 87205 ==

== ENCOUNTER 2019-11-16 08:44 | Outpatient (CLI) | payer BC, SELFPAY ==
[2019-11-16 08:45] VITALS: BMI 32.8
[2019-11-16 09:08] LABS: Basophils # 0.1 K/mm3 (0-0.2); Basophils % 0.9 % (0.1-2.0); Eosinophils # 0.2 K/mm3 (0.0-0.4); Eosinophils % 2.5 % (0.1-12.0); Hematocrit 37.6 % (37.0-47.0); Hemoglobin 12.6 g/dL (12.2-16.2); Lymphocytes # 2.4 K/mm3 (0.7-4.5); Lymphocytes % 36.4 % (10-50); Mean Corpuscular HGB Conc 33.4 g/dL (31.8-35.4); Mean Corpuscular Hemoglobin 30.5 pg (27.0-31.2); Mean Corpuscular Volume 91.2 fl (81-99); Mean Platelet Volume 8.2 fl (7.4-10.4); Monocytes # 0.3 K/mm3 (0.1-1.0); Monocytes % 4.9 % (1.7-9.3); Neutrophils # 3.6 K/mm3 (1.8-7.8); Neutrophils % 55.3 % (37.0-80.0); Platelet Count 352 K/mm3 (142-424); Red Blood Count 4.12 M/mm3 (4.20-5.40); Red Cell Distribution Width 14.4 % (11.5-17.5); White Blood Count 6.5 K/mm3 (4.8-10.8)
[2019-11-16 09:17] LABS: Alanine Aminotransferase 19 U/L (12-78); Albumin Level 4.8 g/dl (3.5-5.0); Albumin/Globulin Ratio 1.3 (1.1-1.8); Alkaline Phosphatase 85 U/L (38-126); Anion Gap 10.6 mEq/L (5-15); Aspartate Amino Transferase 26 U/L (14-36); Bilirubin,Total 0.4 mg/dl (0.2-1.3); Blood Urea Nitrogen 15 mg/dl (7-17); Calcium 9.7 mg/dl (8.4-10.2); Carbon Dioxide 31 mmol/L (22.0-30.0); Chloride 101 mmol/L (98-107); Creatinine Clearance Estimated 162 mL/min (50-200); Estimated Glomerular Filt Rate 107 ml/min (>60); GFR (African American) 129 ML/MIN (>60); Globulin 3.7 g/dL (1.3-3.2); Glucose 109 mg/dl (74-100); Potassium 3.6 mmoL/L (3.5-5.1); Sodium 139 mmol/L (136-145); Total Protein,Serum 8.5 g/dl (6.3-8.2)
[2019-11-16 09:48] LABS: Thyroid Stimulating Hormone 0.79 uIU/mL (0.465-4.68)
[2019-11-16 10:22] VITALS: BP 136/69; PULSE 75; RESP 18; TEMP 36.9; O2SAT 100
[2019-11-16 11:05] VITALS: BP 135/54; PULSE 78; RESP 18; O2SAT 100
[2019-11-20 02:31] LABS: Adrenocorticotropic Hormone 27.9 pg/mL (7.2-63.3)
== END 2019-11-16 11:05 | disposition home or self-care (01) ==
LOC: INF 08:44
PROVIDERS: Visit Provider Internal Medicine Medical Oncology
DX: Z51.11 Encounter for antineoplastic chemotherapy (principal); C43.61 Malignant melanoma of right upper limb, including shoulder
CPT/HCPCS: 80053; 82024; 82533; 84443; 85025; 96413; J9271

== ENCOUNTER 2019-12-05 08:37 | Outpatient (CLI) | payer BC, SELFPAY ==
[2019-12-05 08:40] VITALS: BMI 33.3
[2019-12-05 09:13] LABS: Basophils # 0.1 K/mm3 (0-0.2); Basophils % 1.3 % (0.1-2.0); Eosinophils # 0.1 K/mm3 (0.0-0.4); Eosinophils % 1.8 % (0.1-12.0); Hematocrit 38.4 % (37.0-47.0); Hemoglobin 12.7 g/dL (12.2-16.2); Lymphocytes # 2.4 K/mm3 (0.7-4.5); Lymphocytes % 35.2 % (10-50); Mean Corpuscular HGB Conc 33.1 g/dL (31.8-35.4); Mean Corpuscular Hemoglobin 29.8 pg (27.0-31.2); Mean Corpuscular Volume 90.3 fl (81-99); Mean Platelet Volume 8.3 fl (7.4-10.4); Monocytes # 0.3 K/mm3 (0.1-1.0); Monocytes % 3.8 % (1.7-9.3); Neutrophils # 3.9 K/mm3 (1.8-7.8); Platelet Count 365 K/mm3 (142-424); Red Blood Count 4.25 M/mm3 (4.20-5.40); Red Cell Distribution Width 14.2 % (11.5-17.5); White Blood Count 6.8 K/mm3 (4.8-10.8)
[2019-12-05 09:51] LABS: Thyroid Stimulating Hormone 1.44 uIU/mL (0.465-4.68)
[2019-12-05 09:52] VITALS: BP 126/67; PULSE 63; RESP 18; TEMP 36.8; O2SAT 100
[2019-12-05 10:22] VITALS: BP 114/67; PULSE 57; RESP 18; O2SAT 99
[2019-12-05 10:35] VITALS: BP 120/69; PULSE 57; RESP 18; O2SAT 100
[2019-12-07 09:27] LABS: Adrenocorticotropic Hormone 37.2 pg/mL (7.2-63.3)
== END 2019-12-05 10:35 | disposition home or self-care (01) ==
LOC: INF 08:37
PROVIDERS: Visit Provider Internal Medicine Medical Oncology
DX: Z51.11 Encounter for antineoplastic chemotherapy (principal); C43.61 Malignant melanoma of right upper limb, including shoulder
CPT/HCPCS: 82024; 82533; 84443; 85025; 96413; J9271

== ENCOUNTER 2019-12-27 08:35 | Outpatient (CLI) | payer BC, SELFPAY ==
[2019-12-27 08:45] VITALS: BMI 32.8
[2019-12-27 09:15] LABS: Basophils # 0.1 K/mm3 (0-0.2); Basophils % 0.8 % (0.1-2.0); Eosinophils # 0.2 K/mm3 (0.0-0.4); Eosinophils % 2.2 % (0.1-12.0); Lymphocytes # 2.7 K/mm3 (0.7-4.5); Lymphocytes % 36.1 % (10-50); Mean Corpuscular HGB Conc 34.2 g/dL (31.8-35.4); Mean Corpuscular Hemoglobin 30.1 pg (27.0-31.2); Mean Corpuscular Volume 88.1 fl (81-99); Mean Platelet Volume 8.1 fl (7.4-10.4); Monocytes # 0.3 K/mm3 (0.1-1.0); Monocytes % 4.2 % (1.7-9.3); Neutrophils # 4.2 K/mm3 (1.8-7.8); Neutrophils % 56.8 % (37.0-80.0); Platelet Count 373 K/mm3 (142-424); Red Blood Count 4.31 M/mm3 (4.20-5.40); Red Cell Distribution Width 14.1 % (11.5-17.5); White Blood Count 7.4 K/mm3 (4.8-10.8)
[2019-12-27 10:17] LABS: Chloride 101 mmol/L (98-107); Potassium 3.6 mmoL/L (3.5-5.1); Sodium 138 mmol/L (136-145)
[2019-12-27 10:19] LABS: Blood Urea Nitrogen 16 mg/dl (7-17); Creatinine Clearance Estimated 139 mL/min (50-200); Estimated Glomerular Filt Rate 89 ml/min (>60); GFR (African American) 108 ML/MIN (>60)
[2019-12-27 10:20] LABS: Alanine Aminotransferase 27 U/L (12-78); Albumin Level 4.2 g/dl (3.5-5.0); Albumin/Globulin Ratio 1.3 (1.1-1.8); Alkaline Phosphatase 83 U/L (38-126); Anion Gap 8.6 mEq/L (5-15); Aspartate Amino Transferase 27 U/L (14-36); Bilirubin,Total 0.3 mg/dl (0.2-1.3); Carbon Dioxide 32 mmol/L (22.0-30.0); Globulin 3.3 g/dL (1.3-3.2); Total Protein,Serum 7.5 g/dl (6.3-8.2)
[2019-12-27 10:21] LABS: Calcium 9.6 mg/dl (8.4-10.2); Glucose 120 mg/dl (74-100)
[2019-12-27 10:50] VITALS: BP 127/70; PULSE 72; RESP 18; TEMP 36.8; O2SAT 100
[2019-12-27 10:51] LABS: Thyroid Stimulating Hormone 1.35 uIU/mL (0.465-4.68)
[2019-12-27 11:25] VITALS: BP 135/75; PULSE 74; RESP 18; O2SAT 100
[2019-12-27 11:40] VITALS: BP 123/71; PULSE 63; RESP 18; O2SAT 99
== END 2019-12-27 11:40 | disposition home or self-care (01) ==
LOC: INF 08:43
PROVIDERS: Visit Provider Internal Medicine Medical Oncology
DX: Z51.11 Encounter for antineoplastic chemotherapy (principal); C43.61 Malignant melanoma of right upper limb, including shoulder
CPT/HCPCS: 36415; 80053; 82024; 82533; 84443; 85025; 96413; J9271

== ENCOUNTER → 2020-01-01 09:41 | Outpatient (POV) | payer BC, SELFPAY | PROVIDERS: Visit Provider Dermatology | DX: Z00.00 Encounter for general adult medical examination without abnormal findings (principal) ==

== ENCOUNTER 2020-01-17 08:23 | Outpatient (CLI) | payer BC, SELFPAY ==
[2020-01-17 08:24] VITALS: BMI 33.3
[2020-01-17 08:47] LABS: Basophils # 0.1 K/mm3 (0-0.2); Basophils % 0.5 % (0.1-2.0); Eosinophils # 0.2 K/mm3 (0.0-0.4); Eosinophils % 1.7 % (0.1-12.0); Hematocrit 36.4 % (37.0-47.0); Hemoglobin 12.5 g/dL (12.2-16.2); Lymphocytes # 3.4 K/mm3 (0.7-4.5); Lymphocytes % 30.1 % (10-50); Mean Corpuscular HGB Conc 34.4 g/dL (31.8-35.4); Mean Corpuscular Hemoglobin 31.2 pg (27.0-31.2); Mean Corpuscular Volume 90.8 fl (81-99); Mean Platelet Volume 8.4 fl (7.4-10.4); Monocytes # 0.5 K/mm3 (0.1-1.0); Neutrophils # 7.2 K/mm3 (1.8-7.8); Neutrophils % 63.6 % (37.0-80.0); Platelet Count 356 K/mm3 (142-424); Red Blood Count 4.01 M/mm3 (4.20-5.40); Red Cell Distribution Width 14.1 % (11.5-17.5); White Blood Count 11.3 K/mm3 (4.8-10.8)
[2020-01-17 09:40] VITALS: BP 125/62; PULSE 66; RESP 18; TEMP 36.6; O2SAT 99
[2020-01-17 10:00] VITALS: BP 119/62; PULSE 64; RESP 18; O2SAT 99
[2020-01-17 10:15] VITALS: BP 130/71; PULSE 65; RESP 20; O2SAT 100
== END 2020-01-17 10:25 | disposition home or self-care (01) ==
LOC: INF 08:23
PROVIDERS: Visit Provider Internal Medicine Medical Oncology
DX: Z51.11 Encounter for antineoplastic chemotherapy (principal); C43.61 Malignant melanoma of right upper limb, including shoulder
CPT/HCPCS: 85025; 96413; J9271

== ENCOUNTER → 2020-04-29 14:32 | Outpatient (POV) | payer BC, SELFPAY | PROVIDERS: Visit Provider Dermatology | DX: Z00.00 Encounter for general adult medical examination without abnormal findings (principal) ==

== ENCOUNTER → 2020-06-06 15:11 | Outpatient (CLI) | payer BC, SELFPAY ==
--- NOTE | 2020-06-06 15:13 | MM_ITS ---
PROCEDURE: MM DIG SCREENING MAMM BI W/CAD Digital Breast Tomosynthesis Included CLINICAL INDICATION: SCREENING There is no personal or family history of breast cancer. COMPARISON: MG MM DIG SCREENING MAMM BI W/CAD from 05/24/2019 TECHNIQUE: Standard CC and MLO images and 3D Tomosynthesis was obtained. R2 CAD reviewed. FINDINGS: Moderate diffuse fibroglandular densities are seen throughout both breast. There are couple of benign-appearing microcalcifications right breast. There are surgical clips in the right axilla. Suspicious lesion in either breast and no suspicious microcalcifications. IMPRESSION: Moderate diffuse breast density with no suspicious lesions seen BI-RAD Category: 2 Benign Finding(s) FOLLOW-UP: 1YR 1 Year Follow-up (A letter has been sent to the patient regarding results of the study.) Dictated by: Dr. Dung Hernandez MD 06/11/2020 08:59 Dr. Dung Hernandez MD in [place] 06/11/2020 08:59
== END ==
PROVIDERS: PCP Nurse Practitioner Family; Visit Provider Nurse Practitioner Family
DX: Z12.31 Encounter for screening mammogram for malignant neoplasm of breast (principal)
CPT/HCPCS: 77063; 77067

== ENCOUNTER → 2020-08-05 08:11 | Outpatient (CLI) | payer BC, SELFPAY ==
--- NOTE | 2020-08-05 08:24 | MR_ITS ---
PROCEDURE: MR HEAD/BRAIN WO/W CON CLINICAL INDICATION: MELANOMA Spread to lymph nodes x1 0.5 years ago. Follow-up. TECHNIQUE: Routine multiplanar multi echo sequences are performed prior to and following 18 cc ProHance intravenously. FINDINGS: There are no areas of restricted diffusion. No hydrocephalus. There is no hemorrhage. There is no abnormal contrast enhancement, no mass, or mass effect. There is no abnormal fluid collection. There is normal flow related signal in visualized areas of the major intracranial vasculature and the central draining venous sinuses. There is no significant atrophy. There are several dilated perivascular spaces in the bilateral insular area of which were also present on the prior study, these demonstrate no abnormal enhancement and are unchanged. There is a small right maxillary mucous retention cyst. Paranasal sinuses are otherwise clear. Mastoid air cells are clear. Partial visualization of the surrounding structures is unremarkable. IMPRESSION: Unremarkable unchanged brain MRI. No evidence of metastatic disease. Dictated by: Cheyanne Encinas 08/05/2020 10:51 Cheyanne Encinas in [place] 08/05/2020 10:51
== END ==
PROVIDERS: PCP Nurse Practitioner Family; Visit Provider Internal Medicine Medical Oncology
DX: C43.9 Malignant melanoma of skin, unspecified (principal)
CPT/HCPCS: 70553; A9576

== ENCOUNTER → 2020-08-22 07:00 | Outpatient (CLI) | payer BC, SELFPAY ==
[2020-08-22 13:48] LABS: Chloride 106 mmol/L (98-107); Potassium 4.5 mmoL/L (3.5-5.1); Sodium 138 mmol/L (136-145)
[2020-08-22 13:51] LABS: Alanine Aminotransferase 18 U/L (12-78); Albumin Level 3.9 g/dl (3.5-5.0); Albumin/Globulin Ratio 1.2 (1.1-1.8); Alkaline Phosphatase 71 U/L (38-126); Anion Gap 9.5 mEq/L (5-15); Aspartate Amino Transferase 22 U/L (14-36); Bilirubin,Total 0.6 mg/dl (0.2-1.3); Blood Urea Nitrogen 12 mg/dl (7-17); Calcium 9.4 mg/dl (8.4-10.2); Carbon Dioxide 27 mmol/L (22.0-30.0); Estimated Glomerular Filt Rate 107 ml/min (>60); GFR (African American) 129 ML/MIN (>60); Globulin 3.2 g/dL (1.3-3.2); Glucose 118 mg/dl (74-100); Total Protein,Serum 7.1 g/dl (6.3-8.2)
[2020-08-22 14:14] LABS: Basophils % 0.6 % (0.1-2.0); Eosinophils # 0.2 K/mm3 (0.0-0.4); Eosinophils % 2.1 % (0.1-12.0); Hematocrit 36.6 % (37.0-47.0); Lymphocytes # 2.2 K/mm3 (0.7-4.5); Lymphocytes % 31.4 % (10-50); Mean Corpuscular HGB Conc 32.7 g/dL (31.8-35.4); Mean Corpuscular Hemoglobin 29.8 pg (27.0-31.2); Mean Corpuscular Volume 91.2 fl (81-99); Mean Platelet Volume 8.2 fl (7.4-10.4); Monocytes # 0.3 K/mm3 (0.1-1.0); Neutrophils # 4.3 K/mm3 (1.8-7.8); Neutrophils % 61.9 % (37.0-80.0); Platelet Count 354 K/mm3 (142-424); Red Blood Count 4.02 M/mm3 (4.20-5.40); Red Cell Distribution Width 14.7 % (11.5-17.5); White Blood Count 6.9 K/mm3 (4.8-10.8)
== END ==
PROVIDERS: Visit Provider Internal Medicine Medical Oncology
DX: C43.9 Malignant melanoma of skin, unspecified (principal)
CPT/HCPCS: 36415; 80053; 85025

== ENCOUNTER → 2020-08-26 14:21 | Outpatient (POV) | payer BC, SELFPAY | PROVIDERS: Visit Provider Dermatology | DX: Z00.00 Encounter for general adult medical examination without abnormal findings (principal) ==

== ENCOUNTER → 2021-01-13 08:56 | Outpatient (POV) | payer BC, SELFPAY | PROVIDERS: Visit Provider Dermatology | DX: Z00.00 Encounter for general adult medical examination without abnormal findings (principal) ==

== ENCOUNTER → 2021-02-10 13:09 | Outpatient (CLI) | payer BC, SELFPAY ==
--- NOTE | 2021-02-10 13:13 | MR_ITS ---
PROCEDURE: MR HEAD/BRAIN WO/W CON CLINICAL INDICATION: MELANOMA COMPARISON: MR MR HEAD/BRAIN WO/W CON from 08/05/2020 TECHNIQUE: Routine multiplanar multi echo sequences are performed without and with gadolinium enhancement. FINDINGS: No midline shift. No evidence of acute infarction or restricted diffusion. The cerebellopontine angles, cerebellum, and mid brain have an unremarkable appearance. No midline shift or mass effect. No evidence of acute intracranial hemorrhage. No white matter lesions. No enhancing lesions. Dilated perivascular spaces. Small right maxillary retention cyst is present the at 14 mm. No mastoid effusion. IMPRESSION: Negative MRI of the brain. No evidence of metastatic disease. Dictated by: Vincent Galaviz MD 02/11/2021 08:10 Vincent Galaviz MD in [place] 02/11/2021 08:10
== END ==
PROVIDERS: PCP Nurse Practitioner Family; Visit Provider Internal Medicine Medical Oncology
DX: C43.9 Malignant melanoma of skin, unspecified (principal)
CPT/HCPCS: 70553; A9576

== ENCOUNTER → 2021-02-23 08:29 | Outpatient (CLI) | payer BC, SELFPAY ==
[2021-02-23 08:50] LABS: Basophils # 0.1 K/mm3 (0-0.2); Basophils % 1.2 % (0.1-2.0); Eosinophils # 0.1 K/mm3 (0.0-0.4); Eosinophils % 1.5 % (0.1-12.0); Hematocrit 41.3 % (37.0-47.0); Hemoglobin 13.1 g/dL (12.2-16.2); Lymphocytes # 3.2 K/mm3 (0.7-4.5); Lymphocytes % 38.5 % (10-50); Mean Corpuscular HGB Conc 31.8 g/dL (31.8-35.4); Mean Corpuscular Hemoglobin 29.8 pg (27.0-31.2); Mean Corpuscular Volume 93.5 fl (81-99); Mean Platelet Volume 8.4 fl (7.4-10.4); Monocytes # 0.4 K/mm3 (0.1-1.0); Monocytes % 4.7 % (1.7-9.3); Neutrophils # 4.5 K/mm3 (1.8-7.8); Platelet Count 548 K/mm3 (142-424); Red Blood Count 4.42 M/mm3 (4.20-5.40); Red Cell Distribution Width 13.9 % (11.5-17.5); White Blood Count 8.3 K/mm3 (4.8-10.8)
[2021-02-23 09:32] LABS: Alanine Aminotransferase 46 U/L (12-78); Albumin Level 4.1 g/dl (3.5-5.0); Albumin/Globulin Ratio 1.4 (1.1-1.8); Alkaline Phosphatase 75 U/L (38-126); Anion Gap 12.4 mEq/L (5-15); Aspartate Amino Transferase 37 U/L (14-36); Bilirubin,Total 0.2 mg/dl (0.2-1.3); Blood Urea Nitrogen 14 mg/dl (7-17); Calcium 9.3 mg/dl (8.4-10.2); Carbon Dioxide 32 mmol/L (22.0-30.0); Chloride 100 mmol/L (98-107); Estimated Glomerular Filt Rate 106 ml/min (>60); GFR (African American) 129 ML/MIN (>60); Glucose 109 mg/dl (74-100); Potassium 4.4 mmoL/L (3.5-5.1); Sodium 140 mmol/L (136-145); Total Protein,Serum 7.1 g/dl (6.3-8.2)
== END ==
PROVIDERS: Visit Provider Internal Medicine Medical Oncology
DX: C43.9 Malignant melanoma of skin, unspecified (principal)
CPT/HCPCS: 36415; 80053; 85025

== ENCOUNTER → 2021-03-11 13:40 | Outpatient (CLI) | payer BC, SELFPAY ==
--- NOTE | 2021-03-11 13:44 | US_ITS ---
PROCEDURE: US THYROID CLINICAL INDICATION: MELANOMA/ABN PET SCAN COMPARISON: CT CT CHEST WO/W CON from 08/02/2019 FINDINGS: Right lobe: 4.7 x 2.3 x 3.4 cm. 15 mm cyst upper pole. 1 cm heterogeneous nodule in the upper pole well-circumscribed wider than tall without calcifications. Isoechoic heterogeneous nodule mid polar region at 1 cm. 1 cm cyst lower pole Left lobe: 4.3 x 1.6 x 2.1 cm. 6 mm cyst upper pole. 10 x 7 mm hypoechoic nodule mid polar region posteriorly TR level 3 less than 2.5 cm. 7 mm cyst lower pole. 10 mm hypoechoic nodule deep lower pole ill-defined. there is some posterior acoustical shadowing suggesting calcification corresponding to the partially calcified nodule as seen on previous CT scan. This shows peripheral calcification on the CT scan. TR level 4 less than 1.5 cm. Isthmus: 9 x 5 mm hypoechoic nodule is present within the isthmus with enhanced through transmission of sound and could be cystic. This is well-circumscribed wider than tall without calcification. Additional findings: IMPRESSION: Multinodular goiter. There is a TR level 4 nodule on the left less than 1.5 cm.. Recommend six-month ultrasound follow-up. Dictated by: Vincent Galaviz MD 03/11/2021 18:40 Vincent Galaviz MD in [place] 03/11/2021 18:40
== END ==
PROVIDERS: PCP Nurse Practitioner Family; Visit Provider Internal Medicine Medical Oncology
DX: C43.9 Malignant melanoma of skin, unspecified (principal); R94.6 Abnormal results of thyroid function studies
CPT/HCPCS: 76536

== ENCOUNTER → 2021-09-04 12:27 | Outpatient (CLI) | payer BC, SELFPAY ==
--- NOTE | 2021-09-04 12:34 | US_ITS ---
FINAL REPORT CLINICAL HISTORY: MELANOMA,ABN PET SCAN COMPARISON: March 11, 2021 FINDINGS: THYROID ULTRASOUND Sonographic images of the thyroid was obtained. The right lobe of the thyroid measures 4.4 x 3.2 x 1.6 cm. The left lobe of the thyroid measures 4.1 x 2.2 x 2.1 cm. The isthmus measures 6 mm. There are multiple nodules bilaterally. 1.9 x 1.3 x 1.2 cm solid, hypoechoic nodule in the lower right lobe, TI-RADS 4. 1.7 x 1.5 x 1.1 cm stable, cystic nodule in the upper right lobe, TI-RADS 1. 1.5 x 0.9 x 0.8 cm solid, isoechoic nodule in the mid left lobe, TI-RADS 3. 1.4 x 1.3 x 0.8 cm isoechoic nodule with a microcalcification in the lower left lobe, TI-RADS 4. IMPRESSION: A direct comparison is difficult but the overall appearance is similar. Based upon TI-RADS criteria, an FNA of the TI-RADS 4 nodule in the lower pole of the right lobe is recommended but it is visually stable. Could also consider a follow-up ultrasound in 6 months. Reviewed, Interpreted and Dictated by Jean Gu III, MD Transcribed by Yanet Richmond Authenticated by Jean Gu III, MD on 09/04/2021 03:03:16 PM [facility]
[2021-09-04 14:06] LABS: Basophils # 0.1 K/mm3 (0-0.2); Basophils % 1.3 % (0.1-2.0); Eosinophils # 0.1 K/mm3 (0.0-0.4); Eosinophils % 1.3 % (0.1-12.0); Hematocrit 38.3 % (37.0-47.0); Hemoglobin 12.5 g/dL (12.2-16.2); Lymphocytes # 2.9 K/mm3 (0.7-4.5); Lymphocytes % 37.9 % (10-50); Mean Corpuscular HGB Conc 32.6 g/dL (31.8-35.4); Mean Corpuscular Hemoglobin 30.1 pg (27.0-31.2); Mean Corpuscular Volume 92.4 fl (81-99); Mean Platelet Volume 8.3 fl (7.4-10.4); Monocytes # 0.4 K/mm3 (0.1-1.0); Monocytes % 5.1 % (1.7-9.3); Neutrophils # 4.1 K/mm3 (1.8-7.8); Neutrophils % 54.4 % (37.0-80.0); Platelet Count 376 K/mm3 (142-424); Red Blood Count 4.15 M/mm3 (4.20-5.40); Red Cell Distribution Width 13.7 % (11.5-17.5); White Blood Count 7.5 K/mm3 (4.8-10.8)
[2021-09-04 15:23] LABS: Alanine Aminotransferase 31 U/L (12-78); Albumin Level 4.3 g/dl (3.5-5.0); Albumin/Globulin Ratio 1.7 (1.1-1.8); Alkaline Phosphatase 73 U/L (38-126); Anion Gap 10.1 mEq/L (5-15); Aspartate Amino Transferase 33 U/L (14-36); Bilirubin,Total 0.3 mg/dl (0.2-1.3); Blood Urea Nitrogen 17 mg/dl (7-17); Calcium 9.3 mg/dl (8.4-10.2); Carbon Dioxide 29 mmol/L (22.0-30.0); Chloride 103 mmol/L (98-107); Estimated Glomerular Filt Rate 106 ml/min (>60); GFR (African American) 129 ML/MIN (>60); Globulin 2.6 g/dL (1.3-3.2); Glucose 93 mg/dl (74-100); Potassium 4.1 mmoL/L (3.5-5.1); Sodium 138 mmol/L (136-145); Total Protein,Serum 6.9 g/dl (6.3-8.2)
== END ==
PROVIDERS: PCP Nurse Practitioner Family; Visit Provider Internal Medicine Medical Oncology
DX: C43.9 Malignant melanoma of skin, unspecified (principal)
CPT/HCPCS: 36415; 76536; 80053; 85025

== ENCOUNTER → 2021-12-01 08:08 | Outpatient (CLI) | payer BC, SELFPAY ==
--- NOTE | 2021-12-01 08:12 | MM_ITS ---
PROCEDURE INFORMATION: Exam: MG Bilateral Screening 3D Mammography Exam date and time: 12/01/2021 8:13 AM Age: 51 years old Clinical indication: Screening examination TECHNIQUE: Imaging protocol: Bilateral Screening tomosynthesis and 2D mammography including computer-aided detection (CAD) when performed. COMPARISON: 1. MG MM DIG SCREENING MAMM BI W/CAD 06/06/2020 4:08 PM 2. MG MM DIG SCREENING MAMM BI W/CAD 05/24/2019 4:26 PM FINDINGS: MAMMOGRAPHY: Breast composition: There are scattered areas of fibroglandular density. Mass: None. Architectural distortion: None. Calcifications: No suspicious calcifications. Asymmetric density: None. Skin thickening: None. Axillary adenopathy: None. IMPRESSION: No mammographic evidence of malignancy. Annual screening is recommended unless otherwise clinically indicated. ASSESSMENT: BI-RADS Category 1: Negative
== END ==
PROVIDERS: PCP Nurse Practitioner Family; Visit Provider Nurse Practitioner Family
DX: Z12.31 Encounter for screening mammogram for malignant neoplasm of breast (principal)
CPT/HCPCS: 77063; 77067

== ENCOUNTER → 2022-01-15 07:25 | Outpatient (CLI) | payer BC, SELFPAY ==
--- NOTE | 2022-01-15 07:25 | US_ITS ---
FINAL REPORT CLINICAL HISTORY: .fna bilat thyroid nodules-- frank gonzales FINDINGS: Ultrasound guided thyroid biopsy. HISTORY: Bilateral thyroid nodules PROCEDURE: After informed consent was obtained and a time-out was performed, the patient was initially prepped and draped in usual sterile fashion over the right neck. Utilizing local anesthesia and sterile technique with a 25-gauge needle, access to the nodule was obtained. 4 passes were made. The patient tolerated the procedure well and left the department in good condition. Next, the patient was prepped and draped in usual sterile fashion over the left neck. Utilizing local anesthesia and sterile technique with a 25-gauge needle, access to the nodule was obtained. 4 passes were made. The patient tolerated the procedure well and left the department in good condition. IMPRESSION: Status post ultrasound guided biopsy of bilateral thyroid nodules without immediate complication. Films reviewed , interpreted and dictated by Dr. Jess Torres. Transcribed by Frank Newton PA-C. Reviewed, Interpreted and Dictated by Jess Torres MD Transcribed by ADDISON Flores Authenticated and [facility]
== END ==
PROVIDERS: PCP Nurse Practitioner Family; Visit Provider Otolaryngology
DX: E04.1 Nontoxic single thyroid nodule (principal)
CPT/HCPCS: 10005; 76536

== ENCOUNTER → 2022-03-05 08:45 | Outpatient (CLI) | payer BC, SELFPAY ==
[2022-03-05 09:07] LABS: Basophils # 0.1 K/mm3 (0-0.2); Basophils % 1.5 % (0.1-2.0); Eosinophils # 0.2 K/mm3 (0.0-0.4); Eosinophils % 2.2 % (0.1-12.0); Hematocrit 40.4 % (37.0-47.0); Hemoglobin 12.9 g/dL (12.2-16.2); Lymphocytes # 2.7 K/mm3 (0.7-4.5); Lymphocytes % 30.2 % (10-50); Mean Corpuscular Hemoglobin 29.9 pg (27.0-31.2); Mean Corpuscular Volume 93.7 fl (81-99); Monocytes # 0.3 K/mm3 (0.1-1.0); Monocytes % 3.1 % (1.7-9.3); Neutrophils # 5.7 K/mm3 (1.8-7.8); Platelet Count 418 K/mm3 (142-424); Red Blood Count 4.31 M/mm3 (4.20-5.40); Red Cell Distribution Width 13.2 % (11.5-17.5)
[2022-03-05 09:15] LABS: Alanine Aminotransferase 33 U/L (12-78); Albumin/Globulin Ratio 1.4 (1.1-1.8); Alkaline Phosphatase 101 U/L (38-126); Anion Gap 13.5 mEq/L (5-15); Aspartate Amino Transferase 31 U/L (14-36); Blood Urea Nitrogen 13 mg/dl (7-17); Calcium 8.7 mg/dl (8.4-10.2); Carbon Dioxide 29 mmol/L (22.0-30.0); Chloride 100 mmol/L (98-107); Estimated Glomerular Filt Rate 106 ml/min (>60); GFR (African American) 128 ML/MIN (>60); Globulin 2.9 g/dL (1.3-3.2); Glucose 136 mg/dl (74-100); Potassium 3.5 mmoL/L (3.5-5.1); Sodium 139 mmol/L (136-145); Total Protein,Serum 6.9 g/dl (6.3-8.2)
--- NOTE | 2022-03-05 09:17 | MR_ITS ---
FINAL REPORT CLINICAL HISTORY: MELANOMA f/u 19 ml prohance COMPARISON: 02/10/2021 FINDINGS: Multiplanar MR imaging of the brain was performed without and with contrast. There is no evidence of intracranial hemorrhage or mass. No abnormal extra-axial fluid collection is seen. The ventricular size is within normal limits. There is no evidence of shift of the midline structures. The posterior fossa and brainstem have an unremarkable appearance. No area of abnormal restricted diffusion is identified. No abnormal contrast enhancement is seen. Normal major vessel vascular flow voids are noted. There is a stable retention cyst or polyp in the floor of the right maxillary sinus. IMPRESSION: No acute intracranial abnormality identified. Reviewed, Interpreted and Dictated by Jean Gu III, MD Transcribed by Estela Brito Authenticated and . [facility]
[2022-03-05 09:32] LABS: Bilirubin,Total < 0.1 mg/dl (0.2-1.3)
== END ==
PROVIDERS: PCP Family Medicine; Visit Provider Internal Medicine Medical Oncology
DX: C43.9 Malignant melanoma of skin, unspecified (principal)
CPT/HCPCS: 36415; 70553; 80053; 85025; A9576

== ENCOUNTER → 2022-06-10 11:23 | Outpatient (CLI) | payer BC, SELFPAY ==
[2022-06-10 18:30] LABS: Basophils # 0.1 K/mm3 (0-0.2); Eosinophils # 0.2 K/mm3 (0.0-0.4); Eosinophils % 2.7 % (0.1-12.0); Hematocrit 39.9 % (37.0-47.0); Hemoglobin 12.8 g/dL (12.2-16.2); Lymphocytes # 2.9 K/mm3 (0.7-4.5); Lymphocytes % 38.5 % (10-50); Mean Corpuscular HGB Conc 32.1 g/dL (31.8-35.4); Mean Corpuscular Hemoglobin 30.5 pg (27.0-31.2); Mean Corpuscular Volume 94.8 fl (81-99); Mean Platelet Volume 8.9 fl (7.4-10.4); Monocytes # 0.3 K/mm3 (0.1-1.0); Monocytes % 4.1 % (1.7-9.3); Neutrophils # 4.1 K/mm3 (1.8-7.8); Neutrophils % 53.8 % (37.0-80.0); Platelet Count 472 K/mm3 (142-424); Red Blood Count 4.21 M/mm3 (4.20-5.40); Red Cell Distribution Width 13.1 % (11.5-17.5); White Blood Count 7.7 K/mm3 (4.8-10.8)
[2022-06-10 18:54] LABS: Alanine Aminotransferase 39 U/L (12-78); Albumin Level 4.3 g/dl (3.5-5.0); Albumin/Globulin Ratio 1.4 (1.1-1.8); Alkaline Phosphatase 114 U/L (38-126); Anion Gap 10.5 mEq/L (5-15); Aspartate Amino Transferase 42 U/L (14-36); Bilirubin,Total 0.3 mg/dl (0.2-1.3); Blood Urea Nitrogen 15 mg/dl (7-17); Calcium 9.7 mg/dl (8.4-10.2); Carbon Dioxide 29 mmol/L (22.0-30.0); Chloride 104 mmol/L (98-107); Chol/HDL Ratio 4.4 (1-3.5); Cholesterol 209 mg/dl (140-200); Estimated Glomerular Filt Rate 106 ml/min (>60); GFR (African American) 128 ML/MIN (>60); Glucose 98 mg/dl (74-100); HDL Cholesterol 48 mg/dl (40-60); Potassium 4.5 mmoL/L (3.5-5.1); Sodium 139 mmol/L (136-145); Total Protein,Serum 7.3 g/dl (6.3-8.2); Triglycerides 135 mg/dl (30-150); VLDL Cholesterol 27 mg/dL (0-40)
[2022-06-10 19:05] LABS: Direct LDL Cholesterol 118.72 mg/dL (100-129)
[2022-06-10 19:24] LABS: Thyroid Stimulating Hormone 0.85 uIU/mL (0.465-4.68)
== END ==
PROVIDERS: PCP Family Medicine; Visit Provider Family Medicine
DX: R73.03 Prediabetes (principal); I10 Essential (primary) hypertension; E78.5 Hyperlipidemia, unspecified; E04.1 Nontoxic single thyroid nodule
CPT/HCPCS: 80053; 80061; 83036; 84443; 85025

== ENCOUNTER → 2022-07-12 13:24 | Outpatient (CLI) | payer BC, SELFPAY ==
--- NOTE | 2022-07-12 13:24 | US_ITS ---
FINAL REPORT TECHNIQUE: Sonographic images of the thyroid gland were obtained in the longitudinal and transverse planes. CLINICAL HISTORY: Thyroid nodule FINDINGS: Exam is somewhat limited. The right lobe measures 2.5 x 5.1 x 1.9 cm. There are multiple colloid cyst. There is a 1.5 cm, mixed cystic and solid nodule . Along the posterior right thyroid is an isoechoic, slightly nodular area which could be parathyroid adenoma or thyroid lobule. The left lobe measures 2.0 x 4.8 x 1.5 cm. There are multiple left thyroid nodules, some cystic, some solid. The largest nodule is hypoechoic and measures 1 cm. There is a 6 mm hypoechoic nodule within the isthmus measuring 5 mm. IMPRESSION: Bilateral cystic and solid thyroid nodules, the largest, on the left is TI-RADS 4. Consider follow-up. Reviewed, Interpreted and Dictated by Jess Torres MD Transcribed by Shadia Nieves Authenticated and [facility]
== END ==
PROVIDERS: PCP Family Medicine; Visit Provider Otolaryngology
DX: E04.1 Nontoxic single thyroid nodule (principal)
CPT/HCPCS: 76536

== ENCOUNTER → 2022-09-01 08:06 | Outpatient (CLI) | payer BC, SELFPAY ==
--- NOTE | 2022-09-01 08:30 | MR_ITS ---
FINAL REPORT CLINICAL HISTORY: MELANOMA FOLLOW-UP 18ML PROHANCE COMPARISON: 03/05/2022 FINDINGS: Multiplanar MR imaging of the brain was performed without and with contrast. There is no evidence of intracranial hemorrhage or mass. No abnormal extra-axial fluid collection is seen. The ventricular size is within normal limits. There is no evidence of shift of the midline structures. The posterior fossa and brainstem have an unremarkable appearance. No area of abnormal restricted diffusion is identified. No abnormal contrast enhancement is seen. Normal major vessel vascular flow voids are noted. There is retention cyst or polyp in the right maxillary sinus. IMPRESSION: No evidence of intracranial metastatic disease. Reviewed, Interpreted and Dictated by Jean Gu III, MD Transcribed by Keena Abdullahi Authenticated and [facility]
[2022-09-01 09:06] LABS: Basophils # 0.1 K/mm3 (0-0.2); Basophils % 1.3 % (0.1-2.0); Eosinophils # 0.1 K/mm3 (0.0-0.4); Eosinophils % 1.6 % (0.1-12.0); Hematocrit 41.5 % (37.0-47.0); Lymphocytes % 40.3 % (10-50); Mean Corpuscular HGB Conc 31.3 g/dL (31.8-35.4); Mean Corpuscular Hemoglobin 29.1 pg (27.0-31.2); Mean Corpuscular Volume 92.8 fl (81-99); Mean Platelet Volume 7.8 fl (7.4-10.4); Monocytes # 0.3 K/mm3 (0.1-1.0); Monocytes % 4.3 % (1.7-9.3); Neutrophils # 3.9 K/mm3 (1.8-7.8); Neutrophils % 52.5 % (37.0-80.0); Platelet Count 477 K/mm3 (142-424); Red Blood Count 4.47 M/mm3 (4.20-5.40); White Blood Count 7.5 K/mm3 (4.8-10.8)
[2022-09-01 09:15] LABS: Alanine Aminotransferase 37 U/L (12-78); Albumin Level 4.2 g/dl (3.5-5.0); Albumin/Globulin Ratio 1.6 (1.1-1.8); Alkaline Phosphatase 95 U/L (38-126); Anion Gap 11.5 mEq/L (5-15); Aspartate Amino Transferase 30 U/L (14-36); Bilirubin,Total 0.7 mg/dl (0.2-1.3); Blood Urea Nitrogen 13 mg/dl (7-17); Calcium 9.3 mg/dl (8.4-10.2); Carbon Dioxide 32 mmol/L (22.0-30.0); Chloride 99 mmol/L (98-107); Estimated Glomerular Filt Rate 131 ml/min (>60); GFR (African American) 158 ML/MIN (>60); Globulin 2.6 g/dL (1.3-3.2); Glucose 114 mg/dl (74-100); Potassium 4.5 mmoL/L (3.5-5.1); Sodium 138 mmol/L (136-145); Total Protein,Serum 6.8 g/dl (6.3-8.2)
== END ==
PROVIDERS: PCP Family Medicine; Visit Provider Internal Medicine Medical Oncology
DX: C43.9 Malignant melanoma of skin, unspecified (principal)
CPT/HCPCS: 36415; 70553; 80053; 85025; A9576

== ENCOUNTER → 2022-09-14 08:22 | Outpatient (CLI) | payer BC, SELFPAY ==
--- NOTE | 2022-09-14 08:28 | CT_ITS ---
FINAL REPORT TECHNIQUE: Pre-and postcontrast axial imaging of the abdomen and pelvis was obtained.This study was performed with techniques to keep radiation doses as low as reasonably achievable, (ALARA). Individualized dose reduction technique using automated exposure control or adjustment of mA and/or kV according to the patient's size were employed. CLINICAL HISTORY: MELANOMA COMPARISON: July 2019 FINDINGS: The lung bases are clear. Fatty infiltration of the liver. No focal hepatic lesion. The gallbladder is present. The spleen, adrenal glands, and pancreas are unremarkable. There is no hydronephrosis or solid renal mass. On precontrast imaging, no renal stones are identified. Abdominal GI tract is unremarkable. There is no lymphadenopathy or ascites. The pelvic organs and appendix are within normal limits. There is long segment wall thickening of the descending colon that could be due to nondistention. There is mild wall thickening of the sigmoid colon or concerning for infectious/inflammatory colitis. There is no lymphadenopathy or ascites. No acute osseous abnormalities identified. The uterus is normal for age. IMPRESSION: No evidence of metastatic disease. Findings concerning for mild distal colitis favored to be infectious/inflammatory. Fatty liver. Reviewed, Interpreted and Dictated by Jess Torres MD Transcribed by Gerardo Pires Authenticated and [facility]
--- NOTE | 2022-09-14 08:28 | CT_ITS ---
FINAL REPORT CLINICAL HISTORY: MELANOMA COMPARISON: July 2019 FINDINGS: Before and after the administration of intravenous contrast, axial images through the chest were performed by computed tomography. This study was performed with techniques to keep radiation doses as low as reasonably achievable, (ALARA). Individualized dose reduction techniques using automated exposure control or adjustment of mA and/or kV according to the patient's size were employed. There are surgical clips in the right axillary region. There are stable small right axillary lymph nodes. A left prevascular lymph node measures 17 mm in previously measured 18 mm, unchanged. There is no hilar lymphadenopathy. The heart size is normal. There is no pericardial or pleural effusion. Limited images of the upper abdomen demonstrate fatty infiltration of the liver. There is evidence of granulomatous disease. No suspicious infiltrate or nodule identified. IMPRESSION: Stable right axillary and mediastinal lymph nodes. No acute abnormality. Reviewed, Interpreted and Dictated by Jess Torres MD Transcribed by Gerardo Pires Authenticated and [facility]
== END ==
LOC: RAD 08:23
PROVIDERS: PCP Family Medicine; Visit Provider Internal Medicine Medical Oncology
DX: C43.9 Malignant melanoma of skin, unspecified (principal); C43.61 Malignant melanoma of right upper limb, including shoulder
CPT/HCPCS: 71270; 74178; Q9967

== ENCOUNTER → 2023-03-30 16:31 | Outpatient (CLI) | payer BC, SELFPAY ==
[2023-03-30 16:12] LABS: MANUAL DIFFERENTIAL MANUAL DIFFERENTIAL (MANUAL DIFF)
[2023-03-30 16:19] LABS: Basophils # 0.1 K/mm3 (0-0.2); Eosinophils # 0.3 K/mm3 (0.0-0.4); Eosinophils % 2.5 % (0.1-12.0); Hematocrit 38.2 % (37.0-47.0); Hemoglobin 13.2 g/dL (12.2-16.2); Lymphocytes # 2.8 K/mm3 (0.7-4.5); Lymphocytes % 23.8 % (10-50); Mean Corpuscular HGB Conc 34.4 g/dL (31.8-35.4); Mean Corpuscular Hemoglobin 32.1 pg (27.0-31.2); Mean Corpuscular Volume 93.3 fl (81-99); Mean Platelet Volume 8.7 fl (7.4-10.4); Monocytes # 0.5 K/mm3 (0.1-1.0); Neutrophils % 68.7 % (37.0-80.0); Platelet Count 388 K/mm3 (142-424); Red Cell Distribution Width 13.5 % (11.5-17.5); White Blood Count 11.7 K/mm3 (4.8-10.8)
[2023-03-30 16:22] LABS: Alanine Aminotransferase 30 U/L (12-78); Albumin Level 3.9 g/dl (3.5-5.0); Albumin/Globulin Ratio 1.3 (1.1-1.8); Alkaline Phosphatase 99 U/L (38-126); Anion Gap 11.5 mEq/L (5-15); Aspartate Amino Transferase 34 U/L (14-36); Bilirubin,Total 0.2 mg/dl (0.2-1.3); Blood Urea Nitrogen 9 mg/dl (7-17); Calcium 9.3 mg/dl (8.4-10.2); Carbon Dioxide 30 mmol/L (22.0-30.0); Chloride 101 mmol/L (98-107); Chol/HDL Ratio 3.9 (1-3.5); Cholesterol 173 mg/dl (140-200); Estimated Glomerular Filt Rate 130 ml/min (>60); GFR (African American) 157 ML/MIN (>60); Globulin 3.1 g/dL (1.3-3.2); Glucose 106 mg/dl (74-100); HDL Cholesterol 44 mg/dl (40-60); Potassium 4.5 mmoL/L (3.5-5.1); Sodium 138 mmol/L (136-145); Triglycerides 104 mg/dl (30-150); VLDL Cholesterol 21 mg/dL (0-40)
[2023-03-30 16:33] LABS: Direct LDL Cholesterol 97.83 mg/dL (100-129)
[2023-03-30 18:35] LABS: Eosinophils % 2 % (0-3); Lymphocytes % 19 % (10-50); Monocytes % 2 % (2-9); Neutrophils % 77 % (42-76); Platelet Estimate Normal; RBC Morphology Normal; Total Cells Counted 100
[2023-03-30 19:58] LABS: Hemoglobin A1C 6.2 % (4.0-6.0)
== END ==
PROVIDERS: PCP Family Medicine; Visit Provider Family Medicine
DX: R73.03 Prediabetes (principal); E04.1 Nontoxic single thyroid nodule; E78.5 Hyperlipidemia, unspecified
CPT/HCPCS: 80053; 80061; 83036; 85007; 85014; 85018; 85048; 85049

== ENCOUNTER → 2023-06-08 08:21 | Outpatient (CLI) | payer BC, SELFPAY ==
--- NOTE | 2023-06-08 08:22 | US_ITS ---
FINAL REPORT TECHNIQUE: Real-time grayscale and color ultrasound of the thyroid was performed. CLINICAL HISTORY: thyroid nodules COMPARISON: 07/12/2022 FINDINGS: The thyroid gland measures 5.6 x 1.8 x 2.4 cm on the right and 4.9 x 1.9 x 2.1 cm on the left. Nodules: There are multitude of cystic, mixed solid and cystic, and solid nodules in both lobes of the thyroid. The largest measures 1.3 cm in the right lobe, TR 4. There is a TR 4 nodule measuring up to 1 cm on the left. IMPRESSION: Bilateral TR 4 nodules measuring up to 1.3 cm. Findings are similar to the prior study and may represent multinodular goiter. Follow-up 1 year recommended per TI-RADS criteria. Reviewed, Interpreted and Dictated by Shailesh Barr MD Transcribed by Keena Abdullahi Authenticated and [facility]
== END ==
PROVIDERS: PCP Family Medicine; Visit Provider Otolaryngology
DX: E04.1 Nontoxic single thyroid nodule (principal)
CPT/HCPCS: 76536

== ENCOUNTER 2023-09-22 18:29 | Outpatient (CLI) | payer BC, SELFPAY ==
[2023-09-22 18:57] LABS: Chol/HDL Ratio 3.6 (1-3.5); Cholesterol 186 mg/dl (140-200); HDL Cholesterol 51 mg/dl (40-60); Triglycerides 119 mg/dl (30-150); VLDL Cholesterol 24 mg/dL (0-40)
[2023-09-22 19:08] LABS: Direct LDL Cholesterol 100.54 mg/dL (100-129)
[2023-09-22 19:28] LABS: Thyroid Stimulating Hormone 1.25 uIU/mL (0.465-4.68)
[2023-09-23 08:42] LABS: Basophils # 0.1 K/mm3 (0-0.2); Basophils % 1.1 % (0.1-2.0); Eosinophils # 0.1 K/mm3 (0.0-0.4); Eosinophils % 1.1 % (0.1-12.0); Hematocrit 42.5 % (37.0-47.0); Hemoglobin 13.2 g/dL (12.2-16.2); Lymphocytes # 2.7 K/mm3 (0.7-4.5); Lymphocytes % 23.6 % (10-50); Mean Corpuscular Hemoglobin 31.2 pg (27.0-31.2); Mean Corpuscular Volume 100.6 fl (81-99); Mean Platelet Volume 9.7 fl (7.4-10.4); Monocytes # 0.4 K/mm3 (0.1-1.0); Monocytes % 3.9 % (1.7-9.3); Neutrophils % 70.4 % (37.0-80.0); Platelet Count 401 K/mm3 (142-424); Red Blood Count 4.22 M/mm3 (4.20-5.40); Red Cell Distribution Width 13.6 % (11.5-17.5); White Blood Count 11.3 K/mm3 (4.8-10.8)
[2023-09-23 08:43] LABS: Chloride 106 mmol/L (98-107); Sodium 139 mmol/L (136-145)
[2023-09-23 08:44] LABS: Potassium 4.3 mmoL/L (3.5-5.1)
[2023-09-23 08:46] LABS: Alanine Aminotransferase 22 U/L (12-78); Albumin Level 3.9 g/dl (3.5-5.0); Albumin/Globulin Ratio 1.4 (1.1-1.8); Alkaline Phosphatase 111 U/L (38-126); Anion Gap 8.3 mEq/L (5-15); Aspartate Amino Transferase 28 U/L (14-36); Bilirubin,Total 0.5 mg/dl (0.2-1.3); Blood Urea Nitrogen 11 mg/dl (7-17); Carbon Dioxide 29 mmol/L (22.0-30.0); Estimated Glomerular Filt Rate 105 ml/min (>60); GFR (African American) 128 ML/MIN (>60); Globulin 2.8 g/dL (1.3-3.2); Total Protein,Serum 6.7 g/dl (6.3-8.2)
[2023-09-23 08:47] LABS: Calcium 9.6 mg/dl (8.4-10.2); Glucose 112 mg/dl (74-100)
== END 2023-09-22 23:59 ==
LOC: LAB.DROPOF 18:35
PROVIDERS: PCP Nurse Practitioner Family; Visit Provider Nurse Practitioner Family
DX: R73.03 Prediabetes (principal); E78.5 Hyperlipidemia, unspecified; I10 Essential (primary) hypertension
CPT/HCPCS: 80053; 80061; 83036; 84443; 85025

== ENCOUNTER 2024-03-13 15:02 | Outpatient (POV) | payer BC, SELFPAY | END 2024-03-13 23:59 | disposition home or self-care (01) | LOC: SC 15:02 | PROVIDERS: Visit Provider Dermatology | DX: Z00.00 Encounter for general adult medical examination without abnormal findings (principal) ==

== ENCOUNTER 2024-08-30 08:48 | Outpatient (CLI) | payer BC, SELFPAY ==
[2024-08-30 18:01] LABS: Basophils # 0.1 K/mm3 (0-0.2); Basophils % 0.9 % (0.1-2.0); Eosinophils # 0.2 K/mm3 (0.0-0.4); Eosinophils % 1.8 % (0.1-12.0); Hematocrit 39.1 % (37.0-47.0); Hemoglobin 13.1 g/dL (12.2-16.2); Lymphocytes # 3.5 K/mm3 (0.7-4.5); Lymphocytes % 30.1 % (10-50); Mean Corpuscular HGB Conc 33.5 g/dL (31.8-35.4); Mean Corpuscular Hemoglobin 31.5 pg (27.0-31.2); Mean Platelet Volume 11.4 fl (7.4-10.4); Monocytes # 0.6 K/mm3 (0.1-1.0); Monocytes % 4.9 % (1.7-9.3); Neutrophils # 7.2 K/mm3 (1.8-7.8); Neutrophils % 62.1 % (37.0-80.0); Platelet Count 445 K/mm3 (142-424); Red Blood Count 4.16 M/mm3 (4.20-5.40); Red Cell Distribution Width 12.6 % (11.5-17.5); White Blood Count 11.5 K/mm3 (4.8-10.8)
[2024-08-30 19:30] LABS: Albumin Level 4.6 g/dl (3.5-5.0); Chloride 99 mmol/L (98-107); Potassium 4.1 mmoL/L (3.5-5.1); Sodium 136 mmol/L (136-145)
[2024-08-30 19:33] LABS: Alanine Aminotransferase 39 U/L (12-78); Albumin/Globulin Ratio 1.8 (1.1-1.8); Alkaline Phosphatase 86 U/L (38-126); Anion Gap 15.1 mEq/L (5-15); Aspartate Amino Transferase 40 U/L (14-36); Bilirubin,Total 0.4 mg/dl (0.2-1.3); Blood Urea Nitrogen 15 mg/dl (7-17); Calcium 9.5 mg/dl (8.4-10.2); Carbon Dioxide 26 mmol/L (22.0-30.0); Chol/HDL Ratio 4.3 (1-3.5); Cholesterol 185 mg/dl (140-200); Estimated Glomerular Filt Rate 130 ml/min (>60); GFR (African American) 157 ML/MIN (>60); Globulin 2.6 g/dL (1.3-3.2); Glucose 65 mg/dl (74-100); HDL Cholesterol 43 mg/dl (40-60); Total Protein,Serum 7.2 g/dl (6.3-8.2); Triglycerides 117 mg/dl (30-150); VLDL Cholesterol 23 mg/dL (0-40)
[2024-08-30 20:04] LABS: Thyroid Stimulating Hormone 0.81 uIU/mL (0.465-4.68)
[2024-08-30 20:26] LABS: Hepatitis C Ab Qual. W/ RFX NEGATIVE (Negative)
[2024-08-30 20:39] LABS: Direct LDL Cholesterol 102.95 mg/dL (100-129)
[2024-08-30 20:40] LABS: HIV Combo NEGATIVE (Negative)
[2024-08-30 21:08] LABS: 25-OH Vitamin D, Total 14.6 ng/mL (30-100)
== END 2024-08-30 23:59 | disposition home or self-care (01) ==
LOC: LAB.DROPOF 08-31 10:02
PROVIDERS: PCP Nurse Practitioner Family; Visit Provider Nurse Practitioner Family
DX: E78.5 Hyperlipidemia, unspecified (principal); I10 Essential (primary) hypertension; R73.03 Prediabetes; Z11.59 Encounter for screening for other viral diseases
CPT/HCPCS: 80053; 80061; 82306; 83036; 84443; 85025; 86803; 87389

== ENCOUNTER 2024-09-19 08:24 | Outpatient (CLI) | payer BC, SELFPAY ==
--- NOTE | 2024-09-19 08:00 | CT_ITS ---
FINAL REPORT TECHNIQUE: Oral and IV contrast enhanced exam This study was performed with techniques to keep radiation doses as low as reasonably achievable, (ALARA). Individualized dose reduction techniques using automated exposure control or adjustment of mA and/or kV according to the patient''s size were employed. CLINICAL HISTORY: melanoma FOLLOW UP COMPARISON: 09/14/2022 FINDINGS: Abdomen: There is a hypodense lesion in the liver dome measuring 20 mm, unchanged. This could represent a complex cyst or hemangioma. No new liver lesion identified. The remaining solid organs are negative. Cholelithiasis is noted. No bowel obstruction is present. There is no free air. There is a subcutaneous cystic nodule in the left paramidline upper abdomen measuring 15 mm, previously measured 13 mm. This may represent a sebaceous cyst. 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 Pelvis: The appendix is normal. No bowel wall thickening is present. The uterus and ovaries are unremarkable. There is no free fluid. No pelvic mass is seen. IMPRESSION: Stable exam without evidence of metastatic disease. Reviewed, Interpreted and Dictated by Bridget Perez MD Transcribed by Keena Abdullahi Authenticated and [facility]
--- NOTE | 2024-09-19 08:00 | CT_ITS ---
FINAL REPORT TECHNIQUE: Axial CT with contrast with 3-D MIP reconstruction This study was performed with techniques to keep radiation doses as low as reasonably achievable, (ALARA). Individualized dose reduction techniques using automated exposure control or adjustment of mA and/or kV according to the patient''s size were employed. CLINICAL HISTORY: melanoma FOLLOW-UP COMPARISON: 09/14/2022 FINDINGS: No pulmonary mass or infiltrate is present. No suspicious pulmonary nodules. There is no significant pleural effusion. There is no significant pericardial effusion. The previously described left prevascular lymph node is less pronounced on today's exam, compatible with benign etiology. No enlarged lymph nodes are seen. There is no axillary adenopathy. IMPRESSION: No evidence of metastatic disease to the thorax. Reviewed, Interpreted and Dictated by Bridget Perez MD Transcribed by Keena Abdullahi Authenticated and [facility]
[2024-09-19] MEDS: BARIUM SULFATE(READI-CAT2);450ML BOTTLE 450 ML PO (09:03)
[2024-09-19] MEDS: SODIUM CHLORIDE 0.9% 10ML SYR (RAD ONLY) 10 ML IV (09:03)
[2024-09-19] MEDS: IOPAMIDOL-370 (76%);100ML BOTTLE 75 ML IV (09:03)
== END 2024-09-19 23:59 | disposition home or self-care (01) ==
PROVIDERS: PCP Nurse Practitioner Family; Visit Provider Internal Medicine Medical Oncology
DX: Z85.820 Personal history of malignant melanoma of skin (principal)
CPT/HCPCS: 71260; 74177; Q9967

== ENCOUNTER 2025-04-01 17:11 | Outpatient (CLI) | payer BC, SELFPAY ==
[2025-04-01 19:38] LABS: Hematocrit 37.7 % (37.0-47.0); Hemoglobin 12.4 g/dL (12.2-16.2); Immature Granulocytes % 0.3 %; Mean Corpuscular HGB Conc 32.9 g/dL (31.8-35.4); Mean Corpuscular Hemoglobin 30.7 pg (27.0-31.2); Mean Corpuscular Volume 93.3 fl (81-99); Nucleated Red Blood Cells % 0 %; Platelet Count 402 K/mm3 (142-424); Red Blood Count 4.04 M/mm3 (4.20-5.40); Red Cell Distribution Width-SD 43.2 fL; White Blood Count 8.8 K/mm3 (4.8-10.8)
[2025-04-01 20:13] LABS: Alanine Aminotransferase 21 U/L (12-78); Albumin Level 4.2 g/dl (3.5-5.0); Albumin/Globulin Ratio 1.7 (1.1-1.8); Alkaline Phosphatase 116 U/L (38-126); Anion Gap 14.4 mEq/L (5-15); Aspartate Amino Transferase 25 U/L (14-36); Bilirubin,Total 0.6 mg/dl (0.2-1.3); Blood Urea Nitrogen 15 mg/dl (7-17); Calcium 9.6 mg/dl (8.4-10.2); Carbon Dioxide 27 mmol/L (22.0-30.0); Chloride 102 mmol/L (98-107); Cholesterol 173 mg/dl (140-200); Creatinine,Serum 0.60 mg/dl (0.52-1.04); Estimated Glomerular Filt Rate 105 ml/min (>60); GFR (African American) 127 ML/MIN (>60); Globulin 2.5 g/dL (1.3-3.2); Glucose 106 mg/dl (74-100); HDL Cholesterol 40 mg/dl (40-60); Potassium 4.4 mmoL/L (3.5-5.1); Sodium 139 mmol/L (136-145); Total Protein,Serum 6.7 g/dl (6.3-8.2); Triglycerides 90 mg/dl (30-150)
[2025-04-01 20:27] LABS: 25-OH Vitamin D, Total 12.9 ng/mL (30-100)
[2025-04-01 20:42] LABS: Thyroid Stimulating Hormone 0.95 uIU/mL (0.465-4.68)
[2025-04-01 21:27] LABS: Hemoglobin A1C 6.1 % (4.0-6.0)
--- OUTSIDE RECORDS SUMMARY | 2025-04-02 17:13 | XMS_ITS | Clinical Summary ---
Author Organization [facility] Address [address] [place] [address] Care Team Providers Care Engineering Illustrator Name Role Phone Marie Alex Primary Care Provider [phone] Allergies Active Allergy Reactions Criticality Noted Date Comments Adhesive Tape Rash Low 10/19/2018 Medications lisinopril-hydr ochlorothiazide (PRINZIDE,ZESTO RETIC) 20-12.5 MG per tablet Take 1 tablet by mouth Daily. Active pravastatin (PRAVACHOL) 10 MG tablet Take 10 mg by mouth Daily. Active Chlorphen-Pseud oephed-APAP (TYLENOL ALLERGY SINUS PO) Take 1 tablet by mouth Every 4 (Four) Hours As Needed (nasal congestion). Active Triamcinolone Acetonide (NASACORT) 55 MCG/ACT nasal inhaler 2 sprays into the nostril(s) as directed by provider Daily. Active Active Problems No known active problems Social History Tobacco Use Types Packs/Day Years Used Date Smoking Tobacco: Never Smokeless Tobacco: Never Alcohol Use Standard Drinks/Week Comments No 0 (1 standard drink = 0.6 oz pur e alcohol) AUDIT-C Answer Date Recorded Frequency of Alcohol Consumption Never 10/15/2018 Average Number of Drinks Not on file 019 Frequency of Binge Drinking Not on file 09/19 Abuse Screen Answer Date Recorded Unsafe at Home or Work/School Not on file Feels Threatened by Someone? Not on file 05/2023 Does Anyone Keep You from Co ntacting Others or Doint Things Outside the Home? Not on file 03/31/2023 Physical Sign of Abuse Present Not on file 1 Housing Stability Answer Date Recorded Current Living Arrangements Not on file 03/20 Potentially Unsafe Housing Conditions Not on kel e 03/31/2023 Family and Community Support Answer Edson e Recorded Help with Day-to-Day Activities Not on file 03/31/2023 Lonely or Isolated Not on file 03/31/2023 Employment Answer Date Recorded Do you want help finding or keeping work or a katharine b? Not on file 03/31/2023 Disabilities Answer Date Recorded Concentrating, Remembering, or Making Decisions Difficulty Not on file 03/31/2023 Doing Errands Independently Difficulty Not on fi le 03/31/2023 Education Answer Date Recorded Help with school or training? Not on file Preferred Language Not on file 03/31/2023 Comments No Sex and Gender Information Value Date Recorded Sex Assigned at Not on file Legal Sex Female 3:32 PM EDT Gender Identity Not on file Sexual Orientation Not on file Last Filed Vital Signs Vital Sign Reading Time Taken Comments Blood Pressure 152/77 10/19/2018 8:05 PM EDT Pulse 74 10/19/2018 8:20 PM EDT Temperature 36.9 C (98.4 F) 10/19/2018 8:20 PM EDT Respiratory Rate 18 10/19/2018 8:20 PM EDT Oxygen Saturation 99% 10/19/2018 8:20 PM EDT Inhaled Oxygen Concentration - - Weight 97 kg (213 lb 13.5 oz) 10/19/2018 1:15 PM EDT Height 165.1 cm (5' 5 ) 10/19/2018 1:15 PM EDT Body Mass Index 35.59 10/19/2018 1:15 PM EDT Plan of Treatment Health Maintenance Due Date Last Done Comments Annual Gynecologic Pelvic and Breast Exam 1971 TDAP/TD VACCINES (1 - Tdap) 10/10/1990 MAMMOGRAM 2011 COLON CANCER SCREENING 5 YEAR SIGMOIDOSCOPY 10/10/2016 COLONOSCOPY 10/10/2016 CT COLONOGRAPHY 10/10/2016 FECAL OCCULT BLOOD TEST 10/10/2016 FIT Testing (1 year) 10/10/2016 ANNUAL PHYSICAL 10/15/2018 HEPATITIS C SCREENING 10/15/2018 Pneumococcal Vaccine 50+ (1 of 1 - PCV) 10/10/2021 ZOSTER VACCINE (1 of 2) 10/10/2021 COLOGUARD 10/20/2024 10/20/2021 COLORECTAL CANCER SCREENING 10/20/2024 INFLUENZA VACCINE 01/18/2025 Insurance EMPLOYEE Care Teams Engineering Illustrator Relationship Specialty Start Date End Date Marie Alex PA PCP - General Physician Narcotics And/Or Vice Detective 10/15/18
--- OUTSIDE RECORDS SUMMARY | 2025-04-02 17:13 | XMS_ITS | Data Portability ---
Author Organization [facility] Address [address] [place] [address] Care Team Providers Care [employer] Assistants Name Role Phone LUAN VO Primary Care Provider [phone] Assessment Encounter Date Assessment Date Assessment LastModified by Organization Details LastModified Time 04/09/2024 04/09/2024 Patient presents with symptoms of UTI. Results of dipstick were positive for UTI. Advised to drink clear fluids, Tylenol for pain and take prescribed medications as instructed. Patient encouraged to follow up within 1 week if not improving. Not available 04/09/2024 08:50:09 07/16/2024 07/16/2024 Patient presents with symptoms of UTI. Results of dipstick were positive for UTI. Advised to drink clear fluids, Tylenol for pain and take prescribed medications as instructed. Patient encouraged to follow up within 1 week if not improving. Not available 07/16/2024 09:31:15 08/21/2024 08/21/2024 Patient presents with symptoms of UTI. Results of dipstick were negative for UTI. Advised to drink clear fluids, Tylenol for pain and take prescribed medications as instructed. Patient encouraged to follow up within 1 week if not improving. Not available 08/21/2024 08:37:53 Plan of Treatment Reminders Order Date Submit Date Provider Last Modified By Organization Details Last Modified Time Details Appointments None recorded. Lab urinalysis, dipstick 2024 025 [facility], [address] [place] [address], [place], [address], 08:57:09 urinalysis, dipstick [address], [address], 5 09:36:05 urinalysis, dipstick [address], [address], 4 08:53:45 Referral None recorded. Procedures None recorded. Surgeries None recorded. Imaging None recorded. Medication Orders cyclobenzap rine 5 mg tablet 2024 025 [facility], [address] [place], [address], 5 08:57:12 fluconazole 150 mg tablet 2024 025 [facility], [address] [place], [address], 5 08:57:11 Pyridium 100 mg tablet 2024 025 [facility], [address] [place], [address], 5 08:23:53 Macrobid 100 mg capsule 2024 025 [facility], [address] [place], [address], 5 08:24:04 ibuprofen 800 mg tablet 2024 025 [facility], [address] [place], [address], 5 09:36:07 Macrobid 100 mg capsule [address] [facility], [address] [place], [address], 08:23:59 Bromfed DM 2 mg-30 mg-10 mg/5 mL oral syrup 2021 022 [email or web address] [facility], [address] [place], [address], 08:18:05 Patient TargetsNo targets recorded. Patient Instructions Encounter Date Encounter Id Patient Instructions Last Modified By Organization Details Last Modified Time 03/25/2022 [id number] Take medication as directed. Monitor blood pressure. If elevates over 140/90 then stop Bromfed. Increase fluids and rest. If symptoms persist or worsen then return to the clinic. Plan of care discussed with patient who verbalized understanding. [email or web address] Not available 03/25/2022 10:24:11 04/14/2023 [id number] learning about healthy weight Not available 04/14/2023 10:05:09 Pt cleared for employment. [email or web address] Not available 04/14/2023 10:04:28 Plan of care discussed with patient who voiced understanding. [email or web address] Not available 04/14/2023 10:04:16 04/09/2024 [id number] learning about healthy weight Not available 04/09/2024 08:53:43 Learning About Being Physically Active Not available 04/09/2024 08:53:42 When You Want to Lose Weight: Care Instructions Not available 04/09/2024 08:53:43 Take medication as prescribed. Increase fluids. Wipe from front to back. Void after intercourse. Do not hold urine. Urinate often. Take Tylenol/Motrin as needed for pain/fever. If symptoms persist or worsen call the clinic. Not available 04/09/2024 08:52:26 Plan of care discussed with patient who voiced understanding. Not available 04/09/2024 08:53:08 07/16/2024 [id number] learning about healthy weight Not available 07/16/2024 09:36:05 Learning About Being Physically Active Not available 07/16/2024 09:36:05 When You Want to Lose Weight: Care Instructions Not available 07/16/2024 09:36:05 back pain: care instructions Not available 07/16/2024 09:36:05 Take medication as prescribed. Increase fluids. Wipe from front to back. Void after intercourse. Do not hold urine. Urinate often. Take Tylenol/Motrin as needed for pain/fever. If symptoms persist or worsen call the clinic. Not available 07/16/2024 09:34:56 Plan of care discussed with patient who voiced understanding. Not available 07/16/2024 09:35:05 08/21/2024 [id number] Take medication as prescribed, rest, increase fluids. Seek immediate medical care for new or worsening pain, if your lower extremties becomes cool or pale or changes color, if you develop tingling, weakness, or numbness in your lower extremities, and/or if you have signs of a blood clot in your leg such as pain in your calf, back of the knee, thigh, or groin, redness or swelling in your leg , chest pain, or shortness of breath. For symptoms that do not resolve or worsen please follow up with PCP. Not available 08/21/2024 08:56:41 Plan of care discussed with patient who voiced understanding. Not available 08/21/2024 08:57:07 Reason for Referral None Reported. Results Created Date Observation Date Name Description Value Unit Range Abnormal Flag Note LastModifiedBy Organization Detail LastModifiedTime 04/09/2004/09/2024 urina lysis , dipst ick Leukocytes Small Not Available [address], [address], 04/09/2024 08:43:14 04/09/2004/09/2024 urina lysis , dipst ick Nitrite negati ve Not Available [address], [address], 04/09/2024 08:43:14 04/09/2004/09/2024 urina lysis , dipst ick Urobilinogen .2 Not Available [address], [place], [address], 04/09/2024 08:43:14 04/09/2004/09/2024 urina lysis , dipst ick Protein Negati ve Not Available [address], [place], [address], 04/09/2024 08:43:14 04/09/2004/09/2024 urina lysis , dipst ick pH 5.0 Not Available [address], [place], [address], 04/09/2024 08:43:14 04/09/2004/09/2024 urina lysis , dipst ick Blood Large Not Available [address], [place], [address], 04/09/2024 08:43:14 04/09/2004/09/2024 urina lysis , dipst ick Specific [place] 1.005 Not Available [address], [place], [address], 04/09/2024 08:43:14 04/09/2004/09/2024 urina lysis , dipst ick Ketone Negati ve Not Available [address], [place], [address], 04/09/2024 08:43:14 04/09/2004/09/2024 urina lysis , dipst ick Bilirubin Negati ve Not Available [address], [place], [address], 04/09/2024 08:43:14 04/09/2004/09/2024 urina lysis , dipst ick Glucose Negati ve Not Available [address], [place], [address], 04/09/2024 08:43:14 04/09/2004/09/2024 urina lysis , dipst ick Appearance Clear Not Available [address], [place], [address], 04/09/2024 08:43:14 04/09/2004/09/2024 urina lysis , dipst ick Color Yellow Not Available [address], [place], [address], 04/09/2024 08:43:14 07/16/1907/16/2024 urina lysis , dipst ick Leukocytes Large Not Available [address], [place], [address], 07/16/2024 09:18:43 07/16/1907/16/2024 urina lysis , dipst ick Nitrite negati ve Not Available [address], [place], [address], 07/16/2024 09:18:43 07/16/19 25 07/16/2024 urina lysis , dipst ick Urobilinogen .2 Not Available [address], [place], [address], 07/16/2024 09:18:43 07/16/1907/16/2024 urina lysis , dipst ick Protein Negati ve Not Available [address], [place], [address], 07/16/2024 09:18:43 07/16/1907/16/2024 urina lysis , dipst ick pH 5.0 Not Available [address], [place], [address], 07/16/2024 09:18:43 07/16/19 25 07/16/2024 urina lysis , dipst ick Blood Modera te Not Available [address], [place], [address], 07/16/2024 09:18:43 07/16/19 25 07/16/2024 urina lysis , dipst ick Specific [place] 1.030 Not Available [address], [place], [address], 07/16/2024 09:18:43 07/16/19 25 07/16/2024 urina lysis , dipst ick Ketone Negati ve Not Available [address], [place], [address], 07/16/2024 09:18:43 07/16/19 25 07/16/2024 urina lysis , dipst ick Bilirubin Small Not Available [address], [place], [address], 07/16/2024 09:18:43 07/16/19 25 07/16/2024 urina lysis , dipst ick Glucose Negati ve Not Available [address], [place], [address], 07/16/2024 09:18:43 07/16/1907/16/2024 urina lysis , dipst ick Appearance Slight ly Cloudy Not Available [address], [place], [address], 07/16/2024 09:18:43 07/16/1907/16/2024 urina lysis , dipst ick Color Yellow Not Available [address], [place], [address], 07/16/2024 09:18:43 08/22/19 25 08/21/2024 urina lysis , dipst ick Leukocytes Negati ve Not Available [address], [place], [address], 08/21/2024 08:43:11 08/22/19 25 08/21/2024 urina lysis , dipst ick Nitrite negati ve Not Available [address], [place], [address], 08/21/2024 08:43:11 08/22/19 25 08/21/2024 urina lysis , dipst ick Urobilinogen .2 Not Available [address], [place], [address], 08/21/2024 08:43:11 08/22/19 25 08/21/2024 urina lysis , dipst ick Protein Negati ve Not Available [address], [place], [address], 08/21/2024 08:43:11 08/22/19 25 08/21/2024 urina lysis , dipst ick pH 6.5 Not Available [address], [place], [address], 08/21/2024 08:43:11 08/22/19 25 08/21/2024 urina lysis , dipst ick Blood Non-He molyze d: Trace Not Available [address], [place], [address], 08/21/2024 08:43:11 08/22/19 25 08/21/2024 urina lysis , dipst ick Specific [place] 1.020 Not Available [address], [place], [address], 08/21/2024 08:43:11 08/22/19 25 08/21/2024 urina lysis , dipst ick Ketone Negati ve Not Available [address], [place], [address], 08/21/2024 08:43:11 08/22/1908/21/2024 urina lysis , dipst ick Bilirubin Negati ve Not Available [address], [place], [address], 08/21/2024 08:43:11 08/22/1908/21/2024 urina lysis , dipst ick Glucose Negati ve Not Available [address], [place], [address], 08/21/2024 08:43:11 08/22/1908/21/2024 urina lysis , dipst ick Appearance Clear Not Available [address], [place], [address], 08/21/2024 08:43:11 08/22/1908/21/2024 urina lysis , dipst ick Color Dark Yellow Not Available [address], [place], [address], 08/21/2024 08:43:11 Result Notes None recorded. Problems Name Problem SNOMED Code Status Onset Date Resolution Date Notes Provider Name and Address Organization Details Recorded Time Otogenic otalgia 76043732 Completed 201804/26/2019 Not Available [facility] 2 22:23:38 Body mass index 30+ - obesity 114414995 Active 2018 Problem Code: Z68.32; Problem Code Type: ICD-10; Not Available [facility] 2 22:23:38 Problem Notes None recorded. Medical Equipment None Reported. Allergies No known drug allergies Medications Name Sig Start Date Stop Date Status Note LastModified by Organization Details LastModified Time amoxicillin 500 mg capsule take 1 capsule (500 mg) by oral route every 12 hours for 10 days 04/25 completed Not Available Not Available Not Available metformin 500 mg tablet TAKE 1 TABLET BY MOUTH DAILY WITH A MEAL. 04/14 completed Not Available Not Available Not Available lisinopril 20 mg-hydrochl orothiazide 12.5 mg tablet TAKE 1 TABLET BY MOUTH ONCE DAILY. active Not Available Not Available No t Available ibuprofen 800 mg tablet TAKE 1 TABLET BY MOUTH THREE TIMES DAILY active Not Available Not Available No t Available fluconazole 150 mg tablet TAKE 1 TABLET BY MOUTH NOW REPEAT DOSE IN 72 HOURS active Not Available Not Available No t Available Pyridium 100 mg tablet Take 1 tablet 3 times a day by oral route for 2 days. 08/21 completed Not Available Not Available Not Available pravastatin 10 mg tablet TAKE 1 TABLET BY MOUTH DAILY FOR CHOLESTER OL. 04/09 completed Not Available Not Available Not Available doxycycline monohydrate 100 mg capsule take 1 capsule (100 mg) by oral route 2 times per day 03/09 completed Not Available Not Available Not Available cephalexin 500 mg capsule TAKE 1 CAPSULE BY MOUTH TWICE DAILY FOR 10 DAYS. 04/14 completed Not Available Not Available Not Available pravastatin 20 mg tablet TAKE 1 TABLET BY MOUTH ONCE DAILY. active Not Available Not Available No t Available lisinopril 10 mg-hydrochl orothiazide 12.5 mg tablet take 1 tablet by oral route once daily 04/14 completed Not Available Not Available Not Available bromphenira mine-pseudo ephedrine-D M 2 mg-30 mg-10 mg/5 mL oral syrup TAKE 10 ML BY MOUTH EVERY 4-6 HOURS NEEDED FOR COLD SYMPTOMS active Not Available Not Available No t Available fluticasone propionate 50 mcg/actuati on nasal spray,suspe nsion INSTILL 1 SPRAY IN EACH NOSTRIL ONCE DAILY. active Not Available Not Available No t Available metformin ER 500 mg tablet,exte nded release 24 hr TAKE 2 TABLETS BY MOUTH ONCE DAILY active Not Available Not Available No t Available cyclobenzap rine 5 mg tablet TAKE 1 TABLET BY MOUTH 3 TIMES DAILY active Not Available Not Available No t Available nitrofurant oin monohydrate /macrocryst als 100 mg capsule TAKE 1 CAPSULE BY MOUTH EVERY 12 HOURS 08/21 completed Not Available Not Available Not Available Keytruda 03/25 completed Not Available Not Available Not Available Vitals Date Recorded Body height Body mass index (BMI) Body weight Body temperature Heart rate Oxygen saturation Oxygen saturation in Arterial blood by Pulse oximetry Systolic And Diastolic Provider Name and Address Organization Details Last Updated DateTime 5 165.1 cm 36.4 kg/m2 74088.7 3 g 97.6 [degF] 85 /min 98 % 98 % 122/80 mm[Hg] Vanda Flushing [employer]. 5 09:10:38 Date Recorded Body height Body temperature Oxygen saturation Oxygen saturation in Arterial blood by Pulse oximetry Heart rate Body mass index (BMI) Body weight Systolic And Diastolic Provider Name and Address Organization Details Last Updated DateTime 5 165.1 cm 97.2 [degF] 97 % 97 % 88 /min 36.4 kg/m2 96242.7 3 g 124/80 mm[Hg] Chetna Posadas, [employer] [address] [place] [address], [address] [employer] 5 08:25:29 Date Recorded Body weight Body mass index (BMI) Body height Body temperature Heart rate Oxygen saturation Oxygen saturation in Arterial blood by Pulse oximetry Systolic And Diastolic Provider Name and Address Organization Details Last Updated DateTime 2 41656.7 7 g 35.6 kg/m2 165.1 cm 97.9 [degF] 89 /min 99 % 99 % 122/78 mm[Hg] Vanda Flushing [employer] 2 09:23:11 Date Recorded Body height Body mass index (BMI) Body weight Body temperature Heart rate Oxygen saturation Oxygen saturation in Arterial blood by Pulse oximetry Systolic And Diastolic Provider Name and Address Organization Details Last Updated DateTime 4 165.1 cm 36.6 kg/m2 94627.3 2 g 98 [degF] 84 /min 99 % 99 % 122/82 mm[Hg] Vanda Flushing [employer] 4 08:39:10 Date Recorded Body height Body mass index (BMI) Body weight Body temperature Heart rate Oxygen saturation Oxygen saturation in Arterial blood by Pulse oximetry Systolic And Diastolic Provider Name and Address Organization Details Last Updated DateTime 3 165.1 cm 36.3 kg/m2 85617.1 4 g 97.1 [degF] 58 /min 97 % 97 % 122/80 mm[Hg] Vanda Zuñiga [place] [facility] 3 08:20:32 Social History Question Answer Notes LastModified by Organizat ion Details LastModified Time Tobacco Smoking Status Never Smoker SocialHist oryQuestio n: 'Tobacco/A lcohol/Sup plements'; SocialHist oryRespons e: 'Never Smoker'; Not Available [facility] 02/23/2022 22:55:52 What Was The Date Of Your Most Recent Tobacco Screening? 08/21/2024 Information not available 08/21/2024 Sex: Unknown Functional Status Question Answer Note LastModified by Organization D etails LastModified Time Do you or have you ever used any other forms of tobacco or nicotine? No [email or web address] Information not available 03/25/2022 What is your level of alcohol consumption? None [email or web address] Information not available 03/25/2022 Mental Status None recorded. Family History Relationship Description Onset Age of this Age Resolved Age Notes LastModified by Organization Details LastModified Time Unspecified Relation Family history of malignant neoplasm Relati ve: ''; [email or web address] Not available 02/23/2022 22:57:19 Unspecified Relation Family history of Myocardial infarction Relati ve: ''; [email or web address] Not available 02/23/2022 22:57:19 Notes:*Procedure Description : Documented family medical history in father*Relative: Father Medical History Condition Response Hypertension Y High Cholesterol Y Gynecological HistoryNo gynecological history recorded. Obstetrics History GPAL:G 0 P 0 0 0 0 Immunizations Vaccine Type Date Status Note Provider Nam e and Address Organization Details Recorded Time Influenza, split virus, trivalent, preservative 9 completed Not Available [facility] 02/23/2022 22:59:46 Past Encounters Encounter ID Performer Location Encounter Start Date Encounter Closed Date Diagnosis/Indication Diagnosis SNOMED-CT Code Diagnosis ICD10 Code Diagnosis IMO Codes Diagnosis Note [id number] Lu Irving APRN [facility] - [address] [address] 03/25/2022 09:21:23 03/25/2022 10:38:44 Acute upper respiratory infection 98175360 J06.9 Body mass index 30+ - obesity 302247857 Z68.32 Healthy lifestyle discussed. Will follow up at next visit [id number] [place] [address] 04/14/2023 08:15:24 04/14/2023 13:28:55 Adult health examination 810423247 Z00.00 Body mass index 30+ - obesity 955722740 Z68.32 Healthy lifestyle discussed. Will follow up at next visit [id number] Che[place] [address] 04/09/2024 08:29:01 04/09/2024 14:49:56 Acute urinary tract infection 504045596 N39.0 Obesity 233668484 E66.9 [id number] Chetna Posadas [place] [address] 07/16/2024 09:06:55 07/16/2024 11:24:34 Low back pain 869219798 M54.50 Acute urin montrell tract infection 129687851 N39.0 Dysuria 32037196 R30.0 Obesity 002734921 E66.9 [id number] [place] [address] 08/21/2024 08:23:11 08/21/2024 08:59:29 Candidiasis of vagina 10105536 B37.31 Low back strain 32294738 1 S39.012A Health Concerns Section Related Observation LastModified by Organization Detai ls LastModified Time None Recorded Concern Status LastModified by Organization Details LastModified Time None Recorded Advance Directives Directive None Recorded Payers Insurance Date Sequence Insurance Name Policy Number Policy Patel Covered Member ID Patel Member ID Guarantor Name 08/21/2024 1 [place] [id number] Laura Reynolds [id number] Laura Reynolds Notes Date Note Type Note Provider Name and Address Organization Details Recorded Time 2 text/html Upper Respiratory SymptomsReported by PatientUpper Respiratory SymptomsFor quality, patient reportsdry coughandnasal discharge. For context, patient reportsallergiesbut reportsno sick contactsandnon-smoker. For location, patient reportschest,throat, andnasal. For severity, patient reportsmild. For duration, patient reportssymptoms lasting less than 2 weeks. For onset/timing, patient reportscannot identify. For alleviating factors, patient reportsantihistamines. For associated symptoms, patient reportsno chest pain,no shortness of breath, andno wheezing.ROS as noted in the HPI Pt relates that she takes allergy medication daily for perennial allergies. She reports that her allergies are worse in the fall and the spring Pt states that she has had some maxillary sinus pressure, cough, and hoarseness. She states she usually takes Mucinex but this has not seemed to help her any. She states that her drainage has been clear and her cough is dry. She denies fever. Lu MOLLY Irving [address] [place], [address], [employer]. 03/25/2022 10:26:48 3 text/html Annual WellnessReported by PatientSocial/Behavioral HistoryFor diet and nutrition, patient reportshealthy diet. For fracture risk, patient reportsno history of fractures,no recent explained fracture,no sudden unexplained fractures, andno previous musculoskeletal injuries. For physical activity, patient reportsexercises on a regular basis,recent increase in physical activity, andgood physical condition. For additional lifestyle factors, patient reportsno tobacco use,no alcohol intake, andstopped drinking alcohol.Mental Status:For depression risk, patient reportsnever feels sad, empty, or tearful,no loss of interest in activities,no significant changes in weight,no sleep disturbances or insomnia,no agitation,no loss of energy,no feelings of worthlessness or guilt,no thoughts of suicide,no history of depression, andno history of mood disorders.Functional AbilityFor hearing, patient reportsno loss of hearing. For vision, patient reportsno vision problems.Pt here for annual physical for workROS as noted in the HPI Lu MorenoMOLLY sandoval [address] [place], [address], [employer]. 04/14/2023 10:05:59 4 text/html Back PainReported by PatientHPIFor location, patient reportsno radiation. For quality, patient reportsdull. For severity, patient reportsunchanged. For timing, patient reportsacuteandintermittent . For context, patient reportsatraumatic. For alleviating factors, patient reportsnone. For aggravating factors, patient reportsnone. For associated symptoms, patient reportsno fever,no weakness,no numbness,no tingling,no shortness of breath,no unintentional weight loss,no chills,no night sweats,no gait instability,no recent increase in stress,no bowel dysfunction, andno bladder dysfunction. For previous injury, patient reportsno prior back injuryandno prior malignancy. For prior imaging, patient reportsnone. Lower Urinary Tract Symptoms (LUTS)Reported by PatientHPIFor associated symptoms, patient reportslow back painbut reportsno abdominal pain,no groin pain,no pelvic pain,no flank pain,no chills,no fever,no diarrhea, andno nausea. For location, patient reportsright. For quality, patient reportsdull. For severity, patient reportsnot changing. For context, patient reportsdenies excessive fluid intake,denies excessive caffeine intake,no dyspareunia, anddenies new medication treatment.53 year old female presents with right lower back pain. She is unable to determine if she has had an increase in urinary frequency because she takes a fluid pill every day and goes to the bathroom frequently anyways. She is unable to identify any triggers for her lower back pain. She has taken aleve without any alleviation of symptoms. Chetna Posadas, MOLLY [address] [place], [address], [facility], [employer]. 04/09/2024 09:09:38 5 text/html Back PainReported by PatientHPIFor location, patient reportsradiation to buttocks rightandradiation to leg rightbut reportslumbar right. For quality, patient reportsdullandshooting. For duration, patient reportscannot identify. For timing, patient reportsintermittent. For alleviating factors, patient reportsrest. For associated symptoms, patient reportsno fever,no weakness,no numbness,no tingling,no shortness of breath,no unintentional weight loss,no chills,no night sweats,no gait instability,no recent increase in stress,no bowel dysfunction, andno bladder dysfunction.53 year old female presents with complaint of a right lower back pain that comes and goes she states that the pain starts right at the top of the buttocks and shoots down right leg that comes and goes it is not constant. She denies any saddle parathesia, numbess, weakeness, loss of bowel or bladder. Lower Urinary Tract Symptoms (LUTS)Reported by PatientHPIFor context, patient reportsabnormal voiding frequencyandexcessive caffeine intakebut reportsno dyspareuniaanddenies new medication treatment. For associated symptoms, patient reportsabdominal pain,low back pain,urgency,frequency, anddysuriabut reportsno chills,no fever,no diarrhea,no nausea,no vomiting,good force of stream,no incontinence,no abnormal vaginal discharge, andno vaginal itching or burning. For location, patient reportsbilateral. For quality, patient reportspressure. For severity, patient reportsmildandmoderate. For onset/timing, patient reports4-10 times a day. For duration, patient reports< 1 week.53 year old female presents with complaint of dysuria, urinary urgency, and an increase in urinary frequency. She states that she no longer has a period.ROS as noted in the HPI consent for treatment obtained Chetna Posadas APRN [address] [place], [address], [facility] [employer] 07/16/2024 09:37:04 5 text/html Back PainReported by PatientHPIFor location, patient reportsno radiationandlumbar right. For quality, patient reportsdull. For severity, patient reportsunchanged. For duration, patient reports1 months. For timing, patient reportsintermittent. For context, patient reportsprior back problems. For alleviating factors, patient reportsrestandposition change. For aggravating factors, patient reportstwisting. For associated symptoms, patient reportsno fever,no weakness,no numbness,no tingling,no shortness of breath,no unintentional weight loss,no chills,no night sweats,no gait instability,no recent increase in stress,no bowel dysfunction, andno bladder dysfunction.53 year old female presents with complaint of a right lower back pain that comes and goes she states that the pain starts right at the top of right buttocks. She denies any radiation. She denies any saddle parathesia, numbness, weakness, or loss of bowel or bladder. She states that the exercises that I provided her with the last time she was seen seemed to help, however, the pain has returned and this time it is stationary and does not radiate. Lower Urinary Tract Symptoms (LUTS)Reported by PatientHPIFor associated symptoms, patient reportslow back pain,dysuria, andvaginal itching or burningbut reportsno abdominal pain,no groin pain,no pelvic pain,no flank pain,no chills,no fever,no constipation,no diarrhea,no nausea,no vomiting,no temperaure,good force of stream,no straining,no post void dribbling,no hesitancy,empties well,no urgency,no incontinence, andno abnormal vaginal discharge. For quality, patient reportspainless. For onset/timing, patient reportsspontaneous. For duration, patient reportsacute. For context, patient reportsdenies excessive fluid intake,denies excessive caffeine intake,no dyspareunia, anddenies new medication treatment.53 year old female presents with complaint of dysuria and vaginal itching. She states that she is unable to identify if she is going to the bathroom more often because she takes a water pill. She denies any incontinence. She states that she no longer has a period. Thinks she may have a UTI or possibly a yeast infection.ROS as noted in the HPI consent for treatment obtained Chetna Posadas APRN [address] [place], [address], [place] [facility] [employer] 08/21/2024 08:59:31 OBGyn Episode No OBEpisode recorded.
== END 2025-04-01 23:59 | disposition home or self-care (01) ==
LOC: LAB.DROPOF 04-02 17:11
PROVIDERS: PCP Nurse Practitioner Family; Visit Provider Nurse Practitioner Family
DX: E55.9 Vitamin D deficiency, unspecified (principal); R73.03 Prediabetes; I10 Essential (primary) hypertension; E78.5 Hyperlipidemia, unspecified; E04.1 Nontoxic single thyroid nodule
CPT/HCPCS: 80053; 80061; 82306; 83036; 84443; 85025

== ENCOUNTER 2025-04-30 14:05 | Outpatient (CLI) | payer BC, SELFPAY ==
--- OUTSIDE RECORDS SUMMARY | 2025-04-30 14:13 | XMS_ITS | Clinical Summary ---
Author Organization [facility] Address [address] [place] [address] Care Team Providers Care Senior Application Software Engineer Name Role Phone Marie Alex Primary Care Provider [phone] Allergies Active Allergy Reactions Criticality Noted Date [...] INFLUENZA VACCINE 01/18/2025 Insurance EMPLOYEE Care Teams Senior Application Software Engineer Relationship Specialty Start Date End Date Marie Alex PA PCP - General Physician Computer Instructor 10/15/18
--- OUTSIDE RECORDS SUMMARY | 2025-04-30 14:13 | XMS_ITS | Data Portability ---
Author Organization [facility] [employer] [facility] Address [address] [place] [address] Care Team Providers Care Carpet Weaver Name Role Phone LUAN VO Primary Care Provider [phone] Assessment Encounter Date Assessment Date Assessment LastModified [...] None recorded. Lab urinalysis, dipstick 2024 025 [facility], [address] [place] [address], [place], [address], 08:57:09 urinalysis, dipstick [address], [address], 5 09:36:05 urinalysis, dipstick [address], [address], 4 08:53:45 Referral None recorded. Procedures None recorded. Surgeries None recorded. Imaging None recorded. Medication Orders cyclobenzap rine 5 mg tablet 2024 025 [facility], [address] [place], [address], 5 08:57:12 fluconazole 150 mg tablet 2024 025 [facility], [address] [place], [address], 5 08:57:11 Pyridium 100 mg tablet 2024 025 [facility], [address] [place], [address], 5 08:23:53 Macrobid 100 mg capsule 2024 025 [facility], [address] [place], [address], 5 08:24:04 ibuprofen 800 mg tablet 2024 025 [facility], [address] [place], [address], 5 09:36:07 Macrobid 100 mg capsule [address] [facility], [address] [place], [address], 08:23:59 Bromfed DM 2 mg-30 mg-10 mg/5 mL oral syrup 2021 022 [email or web address], [address] [place], [address], 08:18:05 Patient TargetsNo targets recorded. Patient Instructions Encounter Date Encounter Id Patient Instructions Last Modified By Organization Details Last Modified Time 03/25/2022 [id number] Take medication as directed. Monitor blood pressure. If elevates over 140/90 then stop Bromfed. Increase fluids and rest. If symptoms persist or worsen then return to the clinic. Plan of care discussed with patient who verbalized understanding. [email or web address] Not available 03/25/2022 10:24:11 04/14/2023 [id number] learning about healthy weight Not available 04/14/2023 10:05:09 Pt cleared for employment. Not available 04/14/2023 10:04:28 Plan of care discussed with patient who voiced understanding. Not available 04/14/2023 10:04:16 04/09/2024 [id number] learning about healthy weight Not available 04/09/2024 [...] voiced understanding. Not available 04/09/2024 08:53:08 07/16/2024 [id number] learning about healthy weight Not available 07/16/2024 [...] voiced understanding. Not available 07/16/2024 09:35:05 08/21/2024 [id number] Take medication as prescribed, rest, increase fluids. [...] , dipst ick Leukocytes Small Not Available [address], [address], 04/09/2024 08:43:14 04/09/2004/09/2024 urina lysis , dipst ick Nitrite negati ve Not Available [address], [address], 04/09/2024 08:43:14 04/09/2004/09/2024 urina lysis , dipst ick Urobilinogen .2 Not Available [address], [place], [address], 04/09/2024 08:43:14 04/09/2004/09/2024 urina lysis , dipst ick Protein Negati ve Not Available [address], [place], [address], 04/09/2024 08:43:14 04/09/2004/09/2024 urina lysis , dipst ick pH 5.0 Not Available [address], [place], [address], 04/09/2024 08:43:14 04/09/2004/09/2024 urina lysis , dipst ick Blood Large Not Available [address], [place], [address], 04/09/2024 08:43:14 04/09/2004/09/2024 urina lysis , dipst ick Specific Clear[place] 1.005 Not Available [address], [place], [address], 04/09/2024 08:43:14 04/09/2004/09/2024 urina lysis , dipst ick Ketone Negati ve Not Available [address], [place], [address], 04/09/2024 08:43:14 04/09/2004/09/2024 urina lysis , dipst ick Bilirubin Negati ve Not Available [address], [place], [address], 04/09/2024 08:43:14 04/09/2004/09/2024 urina lysis , dipst ick Glucose Negati ve Not Available [address], [place], [address], 04/09/2024 08:43:14 04/09/2004/09/2024 urina lysis , dipst ick Appearance Clear Not Available [address], [place], [address], 04/09/2024 08:43:14 04/09/2004/09/2024 urina lysis , dipst ick Color Yellow Not Available [address], [place], [address], 04/09/2024 08:43:14 07/16/1907/16/2024 urina lysis , dipst ick Leukocytes Large Not Available [address], [place], [address], 07/16/2024 09:18:43 07/16/1907/16/2024 urina lysis , dipst ick Nitrite negati ve Not Available [address], [place], [address], 07/16/2024 09:18:43 07/16/19 25 07/16/2024 urina lysis , dipst ick Urobilinogen .2 Not Available [address], [place], [address], 07/16/2024 09:18:43 07/16/1907/16/2024 urina lysis , dipst ick Protein Negati ve Not Available [address], [place], [address], 07/16/2024 09:18:43 07/16/1907/16/2024 urina lysis , dipst ick pH 5.0 Not Available [address], [place], [address], 07/16/2024 09:18:43 07/16/19 25 07/16/2024 urina lysis , dipst ick Blood Modera te Not Available [address], [place], [address], 07/16/2024 09:18:43 07/16/19 25 07/16/2024 urina lysis , dipst ick Specific [place] 1.030 Not Available [address], [place], [address], 07/16/2024 09:18:43 07/16/19 25 07/16/2024 urina lysis , dipst ick Ketone Negati ve Not Available [address], [place], [address], 07/16/2024 09:18:43 07/16/19 25 07/16/2024 urina lysis , dipst ick Bilirubin Small Not Available [address], [place], [address], 07/16/2024 09:18:43 07/16/19 25 07/16/2024 urina lysis , dipst ick Glucose Negati ve Not Available [address], [place], [address], 07/16/2024 09:18:43 07/16/1907/16/2024 urina lysis , dipst ick Appearance Slight ly Cloudy Not Available [address], [place], [address], 07/16/2024 09:18:43 07/16/1907/16/2024 urina lysis , dipst ick Color Yellow Not Available [address], [place], [address], 07/16/2024 09:18:43 08/22/19 25 08/21/2024 urina lysis , dipst ick Leukocytes Negati ve Not Available [address], [place], [address], 08/21/2024 08:43:11 08/22/19 25 08/21/2024 urina lysis , dipst ick Nitrite negati ve Not Available [address], [place], [address], 08/21/2024 08:43:11 08/22/19 25 08/21/2024 urina lysis , dipst ick Urobilinogen .2 Not Available [address], [place], [address], 08/21/2024 08:43:11 08/22/19 25 08/21/2024 urina lysis , dipst ick Protein Negati ve Not Available [address], [place], [address], 08/21/2024 08:43:11 08/22/19 25 08/21/2024 urina lysis , dipst ick pH 6.5 Not Available [address], [place], [address], 08/21/2024 08:43:11 08/22/19 25 08/21/2024 urina lysis , dipst ick Blood Non-He molyze d: Trace Not Available [address], [place], [address], 08/21/2024 08:43:11 08/22/19 25 08/21/2024 urina lysis , dipst ick Specific [place] 1.020 Not Available [address], [place], [address], 08/21/2024 08:43:11 08/22/19 25 08/21/2024 urina lysis , dipst ick Ketone Negati ve Not Available [address], [place], [address], 08/21/2024 08:43:11 08/22/1908/21/2024 urina lysis , dipst ick Bilirubin Negati ve Not Available [address], [place], [address], 08/21/2024 08:43:11 08/22/1908/21/2024 urina lysis , dipst ick Glucose Negati ve Not Available [address], [place], [address], 08/21/2024 08:43:11 08/22/1908/21/2024 urina lysis , dipst ick Appearance Clear Not Available [address], [place], [address], 08/21/2024 08:43:11 08/22/1908/21/2024 urina lysis , dipst ick Color Dark Yellow Not Available [address], [place], [address], 08/21/2024 08:43:11 Result Notes None recorded. Problems Name Problem SNOMED Code Status Onset Date Resolution Date Notes Provider Name and Address Organization Details Recorded Time Otogenic otalgia 54762593 Completed 201804/26/2019 Not Available [facility] 2 22:23:38 Body mass index 30+ - obesity 859983696 Active 2018 Problem Code: Z68.32; Problem Code Type: ICD-10; Not Available [facility] 2 22:23:38 Problem Notes None recorded. Medical [...] Updated DateTime 5 165.1 cm 36.4 kg/m2 90813.7 3 g 97.6 [degF] 85 /min 98 % 98 % 122/80 mm[Hg] Vanda Zara [employer] 5 09:10:38 Date Recorded Body height Body temperature Oxygen saturation Oxygen saturation in Arterial blood by Pulse oximetry Heart rate Body mass index (BMI) Body weight Systolic And Diastolic Provider Name and Address Organization Details Last Updated DateTime 5 165.1 cm 97.2 [degF] 97 % 97 % 88 /min 36.4 kg/m2 07670.7 3 g 124/80 mm[Hg] Chetna Posadas, [employer] [address] [place] [address], [address] [employer] 5 08:25:29 Date Recorded Body weight Body mass index (BMI) Body height Body temperature Heart rate Oxygen saturation Oxygen saturation in Arterial blood by Pulse oximetry Systolic And Diastolic Provider Name and Address Organization Details Last Updated DateTime 2 66435.7 7 g 35.6 kg/m2 165.1 cm 97.9 [degF] 89 /min 99 % 99 % 122/78 mm[Hg] Vanda Pittston [employer] 2 09:23:11 Date Recorded Body height Body mass index (BMI) Body weight Body temperature Heart rate Oxygen saturation Oxygen saturation in Arterial blood by Pulse oximetry Systolic And Diastolic Provider Name and Address Organization Details Last Updated DateTime 4 165.1 cm 36.6 kg/m2 68534.3 2 g 98 [degF] 84 /min 99 % 99 % 122/82 mm[Hg] Vanda Zara [employer] 4 08:39:10 Date Recorded Body height Body mass index (BMI) Body weight Body temperature Heart rate Oxygen saturation Oxygen saturation in Arterial blood by Pulse oximetry Systolic And Diastolic Provider Name and Address Organization Details Last Updated DateTime 3 165.1 cm 36.3 kg/m2 21073.1 4 g 97.1 [degF] 58 /min 97 % 97 % 122/80 mm[Hg] Vanda Zuñiga [place] [facility] [employer] 3 08:20:32 Social History Question Answer Notes LastModified by Organizat ion Details LastModified Time Tobacco Smoking Status Never Smoker SocialHist oryQuestio n: 'Tobacco/A lcohol/Sup plements'; SocialHist oryRespons e: 'Never Smoker'; Not Available [facility] 02/23/2022 22:55:52 What Was The Date Of Your Most Recent Tobacco Screening? 08/21/2024 Information not available 08/21/2024 Sex: Unknown Functional Status Question Answer Note LastModified by Organization D etails LastModified Time Do you or have you ever used any other forms of tobacco or nicotine? No [email or web address] Information not available 03/25/2022 What is your level of alcohol consumption? None [email or web address] Information not available 03/25/2022 Mental Status None [...] virus, trivalent, preservative 9 completed Not Available [facility] 02/23/2022 22:59:46 Past Encounters Encounter ID Performer Location Encounter Start Date Encounter Closed Date Diagnosis/Indication Diagnosis SNOMED-CT Code Diagnosis ICD10 Code Diagnosis IMO Codes Diagnosis Note [id number] Lu Irving APRN [facility] - [address] [address] 03/25/2022 09:21:23 03/25/2022 10:38:44 Acute upper respiratory infection 03688700 J06.9 Body mass index 30+ - obesity 952188271 Z68.32 Healthy lifestyle discussed. Will follow up at next visit [id number] [place] [address] 04/14/2023 08:15:24 04/14/2023 13:28:55 Adult health examination 853696711 Z00.00 Body mass index 30+ - obesity 180766405 Z68.32 Healthy lifestyle discussed. Will follow up at next visit [id number] [place] [address] 04/09/2024 08:29:01 04/09/2024 14:49:56 Acute urinary tract infection 765214110 N39.0 Obesity 924978809 E66.9 [id number] Chetna Posadas [place] [address] 07/16/2024 09:06:55 07/16/2024 11:24:34 Low back pain 977926236 M54.50 Acute urin montrell tract infection 353142680 N39.0 Dysuria 23039240 R30.0 Obesity 371400160 E66.9 [id number] [place] [address] 08/21/2024 08:23:11 08/21/2024 08:59:29 Candidiasis of vagina 47175208 B37.31 Low back strain 70669609 1 S39.012A Health Concerns Section Related Observation LastModified by Organization Detai ls LastModified Time None Recorded Concern Status LastModified by Organization Details LastModified Time None Recorded Advance Directives Directive None Recorded Payers Insurance Date Sequence Insurance Name Policy Number Policy Patel Covered Member ID Patel Member ID Guarantor Name 08/21/2024 1 [place] [id number] Laura Reynolds [id number] Laura Reynolds Notes Date Note Type [...] She denies fever. Lu MOLLY Irving [address] [place], [address], [employer]. 03/25/2022 10:26:48 3 text/html Annual WellnessReported by [...] in the HPI Lu MorenoMOLLY sandoval [address] [place], [address], [employer]. 04/14/2023 10:05:59 4 text/html Back PainReported by [...] alleviation of symptoms. Chetna Posadas, MOLLY [address] [place], [address], [facility] [employer]. 04/09/2024 09:09:38 5 text/html Back PainReported by [...] for treatment obtained Chetna Posadas APRN [address] [place], [address], [facility] [employer] 07/16/2024 09:37:04 5 text/html Back PainReported [...] for treatment obtained Chetna Posadas APRN [address] [place], [address], [place] [facility] [employer] 08/21/2024 08:59:31 OBGyn Episode No OBEpisode recorded.
--- NOTE | 2025-04-30 14:45 | US_ITS ---
FINAL REPORT CLINICAL HISTORY: Multinodular thyroid FINDINGS: Limit sonographic images of the thyroid were obtained. The thyroid is normal in size and mildly heterogeneous. There are at least 4 nodules in each lobe. Largest nodule on the right is isoechoic measuring 11 mm consistent with TR 3. Largest nodule on the left is hypoechoic measuring 11 mm consistent with TR 4. IMPRESSION: Multinodular goiter. Recommend 12-month follow-up. Reviewed, Interpreted and Dictated by Bridget Perez MD Transcribed by Hina Dick Authenticated and [facility]
--- NOTE | 2025-04-30 15:30 | MM_ITS ---
PROCEDURE INFORMATION: Exam: MG Bilateral Screening 3D Mammography Exam date and time: 04/30/2025 2:40 PM Age: 54 years old Clinical indication: Screening examination. TECHNIQUE: Imaging protocol: Bilateral Screening tomosynthesis and 2D mammography including computer-aided detection (CAD) when performed. COMPARISON: 1. MG MM DIG SCREENING MAMM BI W/CAD 12/01/2021 8:13 AM 2. MG MM DIG SCREENING MAMM BI W/CAD 06/06/2020 4:08 PM FINDINGS: MAMMOGRAPHY: Breast composition: There are scattered areas of fibroglandular density. Mass: None. Architectural distortion: None. Calcifications: No suspicious calcifications. Asymmetric density: None. Skin thickening: None. Axillary adenopathy: None. Benign surgical clips in the right axilla. IMPRESSION: No mammographic evidence of malignancy. Annual screening is recommended unless otherwise clinically indicated. ASSESSMENT: BI-RADS Category 2: Benign.
== END 2025-04-30 23:59 | disposition home or self-care (01) ==
LOC: RAD 14:05
PROVIDERS: PCP Nurse Practitioner Family; Visit Provider Nurse Practitioner Family
DX: Z12.31 Encounter for screening mammogram for malignant neoplasm of breast (principal); E04.2 Nontoxic multinodular goiter; R92.323 Mammographic fibroglandular density, bilateral breasts
CPT/HCPCS: 76536; 77063; 77067